=== PATIENT | female | born 1935 | race Caucasian/White ===

== ENCOUNTER 2018-07-26 11:27 | Inpatient (IN) | payer MEDICARE, OTHER ==
[~2018-07-26 11:27] MED LIST: ISOVUE-370 76%-LOCM 1 ML ONE; Iopamidol 370 76% 50 ML VIAL FS ONE
[2018-07-26 13:18] LABS: Hemoglobin 9.5 g/dL (12.0-16.0); Mean Corpuscular HGB CONC 32.2 g/dL (32.0-36.0); Mean Corpuscular Hemoglobin 31.6 pg (27.0-31.0); Mean Corpuscular Volume 97.9 fL (78.0-98.0); Mean Platelet Volume 8.3 fL (7.4-10.4); Platelet Count 238 thou/uL (130-400); RBC Distribution Width 12.9 % (11.5-14.5); Red Blood Cell (RBC) Count 3.02 mill/uL (4.20-5.40); White Blood Cell (WBC) Count 23.2 thou/uL (4.8-10.8)
[2018-07-26 13:24] LABS: INR-International Normal Ratio 1.2; PTT 28.4 SEC (22.9-36.1); Prothrombin Time 15.5 SEC (12.0-14.7)
[2018-07-26 13:33] LABS: Band 1 % (5-11); Lymphocytes 1 % (21-51); MDiff Complete? YES; Monocytes 2 % (0-10); Neutrophil 96 % (42-75); Ovalocytes SLIGHT = 2-5 cells (100X) (0-1/hpf); Platelet Morphology Comment Appears Adequate; Polychromasia SLIGHT = 2-3 cells (100X) (0-2/hpf)
[2018-07-26 13:36] LABS: ALT (SGPT) 34 U/L (8-55); AST (SGOT) 23 U/L (5-34); Albumin 2.9 g/dL (3.4-4.8); Alkaline Phosphatase 85 U/L (40-150); Anion Gap 17 mmol/L (10-20); BUN (Urea Nitrogen) 29 mg/dL (9.8-20.1); Bilirubin, Total 1.2 mg/dL (0.2-1.2); Calc. Creatinine Clearance 0 mL/min (70-130); Calcium 9.1 mg/dL (7.8-10.44); Carbon Dioxide 26 mmol/L (23-31); Chloride 100 mmol/L (98-107); Estimated GFR-MDRD 67; Globulin 2.7 g/dL (2.4-3.5); Glucose 103 mg/dL (83-110); Iron 18 ug/dL (50-170); Iron Binding Capacity, Total 179 mcg/dL (265-497); Lipase 44 U/L (8-78); Magnesium 1.6 mg/dL (1.6-2.6); Potassium 3.9 mmol/L (3.5-5.1); Protein, Total 5.6 g/dL (6.0-8.3); Sodium 139 mmol/L (136-145)
--- NOTE | 2018-07-26 14:07 | RAD ---
CHEST 1 VIEW: HISTORY: Weakness. Blood in stool. COMPARISON: 07/17/2018. FINDINGS: Significant bone demineralization. Markedly displaced comminuted fracture of proximal humeral neck. Status post vertebroplasty changes. Minimal cardiomegaly with bilateral vascular congestion and pro bably some mild interstitial edema changes in the inferior perihilar regions with bilateral pleural e ffusions. IMPRESSION: Vascular congestion with possible mild interstitial edema and bilateral pleural effusions. Significa nt bony demineralization. Nonunited comminuted displaced fracture of the proximal humeral neck but s table from prior study. Significant diffuse bone demineralization. No new confluent pneumonia. POS: [facility]
[2018-07-26 15:00] LABS: Bilirubin Moderate (Negative); Blood, Urine Negative (Negative); Clarity CLOUDY (Clear); Glucose, Urine (Dipstick) Negative (Negative); Leukocyte Small (Negative); Nitrite Negative (Negative); Protein, Urine (Dipstick) Trace mg/dL (Neg-Trace); Specific Gravity, Urine 1.021 (1.002-1.036); pH, Urine 5.5 (5.0-9.0)
[2018-07-26 15:05] LABS: Bacteria/HPF None Seen HPF (None Seen); RBC/HPF 0-3 HPF (0-3)
[2018-07-26 15:11] LABS: Pathc Cast-AUWi Flag 5.81 (0-2.49)
[2018-07-26 15:17] LABS: Hyaline Casts/LPF 4-6 HYALINE CAST LPF (0-3 Hyaline); Other Casts/LPF 0-3 COARSE GRAN LPF (0-3 Hyaline)
[2018-07-26 15:18] LABS: Crystals/HPF 1+ AMORPH URATES HPF (Negative)
[2018-07-26] MEDS ORDERED: Zolpidem Tartrate 5 MG TAB PO PRN (15:27)
--- NOTE | 2018-07-26 16:44 | HP ---
PRIMARY CARE PROVIDER: Dr. Eleazar Marr. Referred to [facility] Service by [facility]. HISTORY OF PRESENT ILLNESS: The patient fell after Thanksgiving, suffered a fracture, dislocated her left humerus. She was placed in the [facility]. She was discharged in the past couple of days. Family and the patient related that she has had diarrhea at least daily for the past several weeks. She has been nauseated and has occasional emesis. She has had no blood in her emesis. She had blood in her stool today described as bright red. She has had no melena. She is anorectic and continues to be nauseated. She denies any abdominal pain, but states she can feel gurgling around. She has had no fever or chills. 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 She has a history of trigeminal neuralgia that acts up on her occasionally. CURRENT MEDICATIONS: 1. Lisinopril 10 mg a day. 2. Metoprolol 25 mg a day. 3. Tramadol 50 mg p.r.n. q.6 hours. 4. Breo Ellipta 125 mcg once a day. ALLERGIES: CODEINE, DEMEROL, AND HYDROCODONE CAUSES ABDOMINAL PAIN, NAUSEA AND VOMITING. PAST SURGICAL HISTORY: Hysterectomy, tonsillectomy in the distant past, and bilateral cataract surgery. She had a kyphoplasty in 2012 for T8-T9 compression fractures. FAMILY HISTORY: Unremarkable for inherited diseases, coronary artery disease, diabetes, etc. SOCIAL HISTORY: The patient smokes 1 to 2 packs a day for 60 years. Drinks very occasional alcohol. Code status is full. Son is next of kin, he is coming. REVIEW OF SYSTEMS: GENERAL: She has dizziness when she takes diuretics. No fainting. EYES: She had diplopia after cataract surgery 4 to 5 years ago, this has significantly resolved. No blurred vision or flashing lights. 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 She has occasional dysphagia. She has no nose bleeds. No pain or drainage in her ears. CARDIAC: No chest pain, orthopnea, or paroxysmal nocturnal dyspnea. RESPIRATIONS: She has occasional wheeze and some dry cough. GASTROINTESTINAL: See present illness. GENITOURINARY: No hematuria or dysuria. MUSCULOSKELETAL: She has had some swelling in her legs occasionally. She states she has a broken back, it is difficult to get exact understanding of what she means by that, but based on our discussion, I believe it represents compression fractures. NEUROLOGICAL: No strokes, seizures, or focal weakness. PSYCHIATRIC: No anxiety or depression. SKIN: She has multiple bruises left from her fall six weeks ago. HEME/LYMPH: No tender or swollen lymph nodes in the axilla, inguinal, or cervical area. EXTREMITIES: It is pertinent her left arm is in a sling. DIAGNOSTIC STUDIES: Chest x-ray, no cardiomegaly, CHF, or infiltrate. She has chronic changes consistent with COPD and scarring. She has a noncomminuted displaced proximal left humeral fracture, reviewed by me. EKG is pending, we will review when available. Comp metabolic profile shows a ferritin of 242. Iron binding capacity and iron are low. BUN is 29, otherwise normal. INR is 1.2. CBC shows a high white count of 23.2, hemoglobin of 9.5, and platelet count of 238,000. ADMITTING DIAGNOSES: Nausea and vomiting, diarrhea, blood in stools, dehydration, hypertension, chronic obstructive pulmonary disease, anemia, and leukocytosis. DISCUSSION: The patient's presentation suggests colitis with possible gastrointestinal bleeding, dehydration secondary to nausea, vomiting, and diarrhea. She will be started on IV fluids replacement doses, Flagyl IV. CT scan with and without contrast of the abdomen will be done. The patient will require re-evaluation after the CT scan is done. Serial CBC and basic metabolic profile will be followed. I have discussed the plan of management with the patient and the family. Job ID: [id number]
[2018-07-26] MEDS: metroNIDAZOLE 500 MG in Premix Bag 1 BAG IVPB SCH ×2 (18:38→23:43)
[2018-07-26] MEDS: D5 1/2 NS w/10 mEq KCl 1,000 ML/1,000 ML BAG IV SCH (20:12)
--- NOTE | 2018-07-26 20:26 | CT ---
CT ABDOMEN AND PELVIS WITH IV CONTRAST: 07/26/18 PROVIDED CLINICAL HISTORY: Colitis. FINDINGS: There are bilateral partially visualized pleural effusions. The liver, spleen, pancreas, kidneys and adrenal glands demonstrate an unremarkable CT appearance. There is extensive atherosclerotic vascular calcification involving the abdominal aorta and its branc hes. This is near occlusive involving the abdominal aorta proximal to and at the level of the renal a rteries. There is severe calcified stenosis of the proximal superior mesenteric artery. The more dist al portions of the SMA do appear opacified. Severe stenosis and calcified in nature involves the romulo ac origin. There is no evidence for bowel obstruction. There is no evidence for free intraperitoneal air or pneu matosis. No significant free fluid is evident. Evaluation for fat stranding is limited given paucity of intraperitoneal fat. There is fluid density throughout much of the distal descending and sigmoid c olon associated with apparent mural thickening. The inferior mesenteric artery is not distinctly iden tified. There is severe calcified stenosis which is occlusive involving the left common iliac artery. The osseous structures demonstrate no concerning lytic or blastic lesions. IMPRESSION: 1. Extensive atherosclerosis with near occlusive calcified plaque involving the abdominal aorta and severe calcified stenoses involving celiac and superior mesenteric origins. The inferior mesenter ic artery is not definitely identified and is presumably occluded. 2. Fluid density within and mural thickening involving the distal descending and sigmoid colon, compatible with colitis. 3. Bilaterally partially visualized pleural effusion. 4. Limited evaluation due to lack of intraperitoneal fat. POS: [facility]
[2018-07-27] MEDS: D5 1/2 NS w/10 mEq KCl 1,000 ML/1,000 ML BAG IV SCH ×2 (03:41→09:10)
[2018-07-27] MEDS: metroNIDAZOLE 500 MG in Premix Bag 1 BAG IVPB SCH ×3 (05:43→17:18)
[2018-07-27 07:49] LABS: #Lymphocytes 1.2 thou/uL (1.20-3.40); #Monocytes 1.2 thou/uL (0.11-0.59); #Neutrophils 17.1 thou/uL (1.40-6.50); %Basophils 0.1 % (0.0-1.0); %Eosinophils 0.1 % (0.0-10.0); %Neutrophils 87.9 % (42.0-75.0); Hemoglobin 8.3 g/dL (12.0-16.0); Mean Corpuscular Hemoglobin 32.2 pg (27.0-31.0); Mean Corpuscular Volume 97.6 fL (78.0-98.0); Mean Platelet Volume 8.8 fL (7.4-10.4); Platelet Count 237 thou/uL (130-400); RBC Distribution Width 12.8 % (11.5-14.5); Red Blood Cell (RBC) Count 2.56 mill/uL (4.20-5.40); White Blood Cell (WBC) Count 19.5 thou/uL (4.8-10.8)
[2018-07-27 08:12] LABS: Anion Gap 8 mmol/L (10-20); BUN (Urea Nitrogen) 23 mg/dL (9.8-20.1); Calc. Creatinine Clearance 41 mL/min (70-130); Calcium 8.1 mg/dL (7.8-10.44); Carbon Dioxide 30 mmol/L (23-31); Chloride 102 mmol/L (98-107); Estimated GFR-MDRD 90; Glucose 111 mg/dL (83-110); Potassium 3.5 mmol/L (3.5-5.1); Sodium 136 mmol/L (136-145)
[2018-07-27] MEDS: Enoxaparin Sodium 40 MG/0.4 ML SYRINGE SC SCH (09:10)
[2018-07-27] MEDS: Lisinopril 10 MG TAB PO SCH (09:10)
[2018-07-27] MEDS: Metoprolol Tartrate 25 MG TAB PO SCH (09:10)
[2018-07-27] MEDS ORDERED: D5 1/2 NS w/10 mEq KCl 1,000 ML/1,000 ML BAG IV SCH (09:33)
--- NOTE | 2018-07-27 10:07 | PRG ---
DATE OF SERVICE: 07/27/2018 SUBJECTIVE: The patient is seen and examined at bedside. She denies any nausea or vomiting. She denies any abdominal pain. She has diarrhea. OBJECTIVE: VITAL SIGNS: Blood pressure is 153/53, pulse is 72, respirations 18, O2 saturation is 93% on 2 L via nasal cannula, temperature is 98.1. HEENT: Her head is atraumatic and normocephalic. Eyes are somewhat shrunked. Sclerae are nonicteric. Conjunctivae are somewhat palish. Oral mucosa is dryish. NECK: Supple. LUNGS: Clear. HEART: S1 and S2 normal. No S3. No S4. ABDOMEN: Soft, nontender, nondistended. EXTREMITIES: No clubbing or cyanosis. There is 1+ peripheral edema around both ankles. NEUROLOGICAL: She is alert and oriented x4. There is no any motor or sensory deficits present. Cranial nerves intact. She looks very emaciated. LABORATORY DATA: Labs showed white count of 19.5, hemoglobin of 8.3, hematocrit 25, platelet count is 237,000. Sodium of 136, potassium 3.5, chloride 102, CO2 30, BUN 23, creatinine 0.63, and glucose 118. MICROBIOLOGY: Campylobacter antigen is negative. Clostridium difficile toxin and antigen negative. Stool lactoferrin final positive. Stool occult blood positive. IMPRESSION: 1. Chronic diarrhea lasting more than a month with weight loss. We will get GI involved. 2. Dehydration improved with IV fluids. 3. Hypertension. 4. Chronic obstructive pulmonary disease. 5. Anemia. 6. Leukocytosis. PLAN: Continuation of metronidazole. Start levofloxacin IV piggyback. Obtain consultation with Gastrointestinal specialist, Dr. Olivera today. Continue her DVT prophylaxis and it looks like she needs to be scoped. Job ID: [id number]
[2018-07-27] MEDS ORDERED: Potassium Chloride 10 MEQ in Dextrose 5 %-0.45 % NaCl 1,000 ML IVPB SCH (12:15)
[2018-07-27] MEDS: Potassium Chloride 10 MEQ in Dextrose 5 %-0.45 % NaCl 1,000 ML IVPB SCH (13:41)
--- NOTE | 2018-07-27 13:51 | EKG ---
Test Reason : Blood Pressure : / mmHG Vent. Rate : 072 BPM Atrial Rate : 072 BPM P-R Int : 136 ms QRS Dur : 080 ms QT Int : 362 ms P-R-T Axes : 089 073 059 degrees QTc Int : 396 ms Sinus rhythm with Premature supraventricular complexes Otherwise normal ECG Confirmed by KATIUSKA MCINTOSH D.O. ([id number]), associate entertainment editor CAMELIA ALLEN ([id number]) on 07/27/2018 1:51:22 PM Referred By: Confirmed By:KATIUSKA MCINTOSH D.O.
[2018-07-27] MEDS ORDERED: GoLYTELY 4,000 ml Bottle PO SCH (18:00)
--- NOTE | 2018-07-27 22:11 | CON ---
DATE OF CONSULTATION: HISTORY OF PRESENT ILLNESS: The patient is an 83-year-old female, who was in her normal state of health until several weeks prior to admission, when she developed diarrhea and some nausea, vomiting. She reports she has lost 12 pounds over the last several months. She did recently notice some blood in her stool and this was new for her. PAST MEDICAL HISTORY: Significant for COPD, trigeminal neuralgia. PAST SURGICAL HISTORY: Includes hysterectomy, tonsillectomy, and cataract surgery. MEDICATIONS: 1. Lisinopril 10 mg p.o. daily. 2. Metoprolol 25 mg p.o. daily. 3. Tramadol 50 mg p.o. q.6 hours p.r.n. 4. . ALLERGIES: CODEINE, DEMEROL, AND HYDROCODONE. SOCIAL HISTORY: She continues to smoke 1 to 2 packs per day for many years. Drinks occasional alcohol. FAMILY HISTORY: Negative for GI or liver disease. REVIEW OF SYSTEMS: CONSTITUTIONAL: No fever or chills. Positive for weight loss. EYES: No blurred vision or double vision. ENT: No sore throat or earaches. CARDIOVASCULAR: No chest pain or palpitations. PULMONARY: No shortness of breath, cough, or wheezing. GI: See above. : No hematuria or dysuria. MUSCULOSKELETAL: Positive for fracture of her left upper extremity. SKIN: No rashes. NEUROLOGIC: No numbness or seizure activity. PHYSICAL EXAMINATION: GENERAL: Shows an elderly, thin, frail white female, in no acute distress. VITAL SIGNS: Temperature 98.1, pulse 63, respiratory rate 15, blood pressure 134/53. HEENT: Unremarkable. NECK: Supple. CHEST: Clear. CARDIOVASCULAR: Regular rate and rhythm. ABDOMEN: Soft, nontender without organomegaly or masses. Bowel sounds are present, normoactive. RECTAL: Deferred. EXTREMITIES: Normal. NEUROLOGIC: Nonfocal. LABORATORY DATA: Laboratory shows a white blood cell count on admission of 23.2, hemoglobin 9.5, hematocrit 29.6. Repeat white blood cell count 19.5, hemoglobin 8.3, hematocrit of 25.0. PT is 15.5 and INR of 1.2. BUN on admission was 29. Iron was 18, TIBC of 179, ferritin 242. Abdominal and pelvic CT showed extensive atherosclerosis with near occlusive calcified plaque involving the abdominal aorta and severe calcified stenosis involving the celiac and SMA. There is also fluid density within mural thickening involving the distal descending and sigmoid colon, compatible with colitis. Bilateral partial visualized pleural effusions are noted. ASSESSMENT: 1. Diarrhea. 2. Nausea, vomiting. 3. Weight loss. 4. Abnormal CT scan of the descending colon-ischemic colitis versus malignancy. 5. Chronic mesenteric vascular disease. 6. Chronic obstructive pulmonary disease. 7. Hematochezia. 8. Anemia-probably gastrointestinal blood loss with anemia of chronic disease. RECOMMENDATIONS: EGD, colonoscopy tomorrow. Job ID: [id number]
[2018-07-28] MEDS: Potassium Chloride 10 MEQ in Dextrose 5 %-0.45 % NaCl 1,000 ML IVPB SCH ×2 (00:23→10:00)
[2018-07-28] MEDS: metroNIDAZOLE 500 MG in Premix Bag 1 BAG IVPB SCH ×3 (00:27→11:52)
[2018-07-28] MEDS: Metoprolol Tartrate 25 MG TAB PO SCH (05:14)
[2018-07-28 06:57] LABS: #Monocytes 1.2 thou/uL (0.11-0.59); #Neutrophils 15.4 thou/uL (1.40-6.50); %Eosinophils 0.3 % (0.0-10.0); %Lymphocytes 5.5 % (21.0-51.0); %Monocytes 6.8 % (0.0-10.0); %Neutrophils 87.4 % (42.0-75.0); Hemoglobin 9.1 g/dL (12.0-16.0); Mean Corpuscular HGB CONC 32.3 g/dL (32.0-36.0); Mean Corpuscular Hemoglobin 32.3 pg (27.0-31.0); Mean Platelet Volume 8.5 fL (7.4-10.4); Platelet Count 257 thou/uL (130-400); RBC Distribution Width 13.1 % (11.5-14.5); Red Blood Cell (RBC) Count 2.83 mill/uL (4.20-5.40); White Blood Cell (WBC) Count 17.6 thou/uL (4.8-10.8)
[2018-07-28 07:15] LABS: Anion Gap 10 mmol/L (10-20); BUN (Urea Nitrogen) 12 mg/dL (9.8-20.1); Calc. Creatinine Clearance 45 mL/min (70-130); Calcium 7.7 mg/dL (7.8-10.44); Carbon Dioxide 26 mmol/L (23-31); Chloride 102 mmol/L (98-107); Estimated GFR-MDRD Greater than 90; Glucose 90 mg/dL (83-110); Potassium 3.5 mmol/L (3.5-5.1); Sodium 134 mmol/L (136-145)
[2018-07-28] MEDS ORDERED: Albuterol Sulfate 1.25 MG/3 ML NEB ONE (08:38)
[2018-07-28] MEDS ORDERED: Albuterol Sulfate HFA (OR ONLY) ONE (08:39)
[2018-07-28] MEDS: Lisinopril 10 MG TAB PO SCH (09:54)
[2018-07-28] MEDS: Enoxaparin Sodium 40 MG/0.4 ML SYRINGE SC SCH (09:54)
[2018-07-28] MEDS ORDERED: Furosemide 40 MG/4 ML VIAL SLOW IVP SCH (13:30)
--- NOTE | 2018-07-28 13:57 | PRG ---
DATE OF SERVICE: 07/28/2018 SUBJECTIVE: The patient is seen and examined at the bedside. There is a family member in the room during my visit. She just came back from the procedure. Dr. Olivera found that she has ischemic colitis on her colonoscopy. OBJECTIVE: VITAL SIGNS: Blood pressure is 166/60, respiratory rate is about 20 to 24, pulse oximeter is 94 on 2 L by nasal cannula. Her pulse is 82. HEENT: Head is atraumatic and normocephalic. She looks emaciated. Her pupils are responding to light properly. Sclerae are nonicteric. Oral mucosa is moist. NECK: Supple. LUNGS: Breath sounds are diminished at both bases. HEART: S1 and S2 are normal. No S3. No S4. ABDOMEN: Soft, nontender. Bowel sounds are present. No organomegaly. EXTREMITIES: No clubbing, cyanosis, or edema. NEUROLOGICAL: She follows my commands. She moves her all four extremities. LABORATORY DATA: Labs showed a white count of 17.6, hemoglobin of 9.1, hematocrit 28.3, and platelet count is 257,000. Sodium of 134, potassium 3.5, chloride 102, CO2 of 26, BUN 12, creatinine 0.57, calcium 7.7. Microbiology, none. IMPRESSION: 1. Nausea, vomiting, diarrhea, and weight loss, status post colonoscopy, which showed ischemic colitis. 2. Chronic mesenteric vascular disease. Cardiothoracic surgeon, Dr. Hogue was consulted. 3. Chronic obstructive pulmonary disease, on DuoNebs. I will continue DuoNebs as her shortness of breath is significantly worse since she came back from the procedure today. I will give her one dose of Lasix. 4. Anemia secondary to gastrointestinal blood loss. PLAN: Plan is to discontinue antibiotics. The case was discussed with Dr. Olivera, who agrees with me. He does not see any need for antibiotic use at this point. This is most likely secondary to ischemic colitis. Her leukocytosis is trending down. We will give her one dose of Lasix 40 mg IV push. We will obtain BNP. I suspect that she had quite a bit of IV fluids during the procedure this morning, and as stated above, Dr. Hogue is consulted for her mesenteric ischemia. Job ID: [id number]
[2018-07-28] MEDS ORDERED: Lidocaine 1% PF 5 ML VIAL ONE (15:35)
[2018-07-28] MEDS ORDERED: PROVENTIL INHALER 6.7 G (200 INHALATIONS) ONE (15:35)
[2018-07-28] MEDS ORDERED: PHENYLEPHRINE-NS 100 MCG/ML 10 ML SYRINGE ONE (15:35)
[2018-07-28] MEDS ORDERED: PROPOFOL 200 MG/20 ML VIAL ONE (15:35)
--- NOTE | 2018-07-28 21:00 | CON ---
DATE OF CONSULTATION: HISTORY OF PRESENT ILLNESS: This is an unfortunate 83-year-old lady who fell and broke her arm about 2 months ago and has been essentially in the hospital rehab since that time. She has had progressive weight loss, severe diarrhea, nausea, and no abdominal pain. She has had some blood in her stool most recently and underwent endoscopy suspicious for ischemic colitis. CT scan was done and I have reviewed this. PAST MEDICAL HISTORY: Significant for hypertension and longstanding tobacco abuse. PAST SURGICAL HISTORY: Includes kyphoplasty T8-T9 from compression fractures, hysterectomy, tonsillectomy, and cataract surgery. SOCIAL HISTORY: She smokes at least a pack and sometimes 2 packs a day for most of her life. She is accompanied by children today. PHYSICAL EXAMINATION: GENERAL: On examination, she is a cachectic appearing female. VITAL SIGNS: Weight stated 85 pounds. NECK: I am unable to auscultate carotid bruits, but due to her cachexia, it is difficulty to even find a spot that is smooth enough to allow the stethoscope to function on her neck. LUNGS: Clear breath sounds bilaterally. CARDIAC: No murmurs. ABDOMEN: Scaphoid and nontender. EXTREMITIES: She has a weak right dorsalis pedis pulse, and I did not appreciate any left pedal pulses. She has no peripheral edema. REVIEW OF SYSTEMS: Otherwise, the patient has noticed progressive weakness, fatigue, and difficulty ambulating due to weakness in her legs. I have reviewed her CT scan, which shows unremarkable amount of atherosclerotic changes in the abdominal aorta and its branch system. The abdominal aorta is nearly completely occluded at above the level of the renal arteries with calcification. The thoracic aorta has circumferential calcification and the distal abdominal aorta is circumferentially calcified as are both iliac systems with near occlusion of the left iliac. The right renal artery is visualized, although its origin cannot be seen. Left renal artery is not visualized. Superior mesenteric artery is nearly or completely occluded with calcium, and the celiac artery is similarly involved. Based on the extensive nature of her disease, I do not think there is any percutaneous intervention. The open intervention to solve this patient's problems would be much too extensive for a cachectic 83-year-old tolerate. Supportive care is all that I can suggest at this time. Job ID: [id number]
[2018-07-29] MEDS: Enoxaparin Sodium 40 MG/0.4 ML SYRINGE SC SCH (07:57)
[2018-07-29] MEDS: Metoprolol Tartrate 25 MG TAB PO SCH (07:57)
[2018-07-29] MEDS: Lisinopril 10 MG TAB PO SCH (07:57)
--- NOTE | 2018-07-29 14:45 | PRG ---
DATE OF SERVICE: 07/29/2018 SUBJECTIVE: The patient is eating somewhat better. She has had no bowel movements. She denies any abdominal pain. The patient was seen by Dr. Hogue, and there was nothing that can be done for her chronic mesenteric vascular disease. OBJECTIVE: VITAL SIGNS: Temperature 98.2, blood pressure 153/53, pulse 92, respiratory rate 18. CHEST: Clear. CARDIOVASCULAR: Regular rate and rhythm. ABDOMEN: Soft, nontender without organomegaly or masses. LABORATORY DATA: Laboratory shows BNP of 792. ASSESSMENT: 1. Ischemic colitis-moderate. 2. Chronic mesenteric vascular disease. RECOMMENDATIONS: 1. Continue to feed. 2. Increase activity. 3. Stable for discharge from GI standpoint when the patient is able to be active and up on her own. Job ID: [id number]
[2018-07-29] MEDS: Ondansetron PF 4 MG/2 ML Vial IVP PRN ×2 (14:51→23:43)
--- NOTE | 2018-07-29 18:08 | PDOC.PN ---
- Subjective Encounter Start Date: 07/29/18 Encounter Start Time: 18:06 Subjective: Seen and examined no new complaint - Objective Resuscitation Status - Order Detail: 07/26/18 15:22 Resuscitation Status Routine Resuscitation Status: FULL: Full Resuscitation Vital Signs & Weight: Vital Signs (12 hours) Temp Pulse Resp BP BP Pulse Ox 07/29/18 16:43 98.3 F 99 18 168/57 H 92 L 07/29/18 12:07 98.2 F 72 18 163/72 H 92 L 07/29/18 11:32 77 12 95 07/29/18 08:00 95 07/29/18 07:57 153/53 H 07/29/18 07:52 97.9 F 76 18 185/65 H 95 07/29/18 06:35 75 14 98 Weight Admit Weight 85 lb 8 oz Weight 85 lb 8 oz I&O: 07/28/18 07/29/18 07/30/18 06:59 06:59 06:59 Intake Total 5700 610 720 Balance 5700 610 720 Result Diagrams: 07/28/18 06:31 07/28/18 06:31 Phys Exam - Physical Examination Constitutional: NAD HEENT: PERRLA, moist MMs, sclera anicteric, TM's clear Neck: no nodes, no JVD, supple, full ROM Respiratory: no wheezing, no rales, no rhonchi Cardiovascular: RRR, no significant murmur, no rub Gastrointestinal: no distention, positive bowel sounds Musculoskeletal: no edema, pulses present Dx/Plan (1) Mesenteric ischemia due to arterial insufficiency Code(s): K55.059 - ACUTE ISCHEMIA OF INTESTINE, PART AND EXTENT UNSPECIFIED Status: Acute (2) Hypertension Code(s): I10 - ESSENTIAL (PRIMARY) HYPERTENSION Status: Acute (3) Advanced age Code(s): R54 - AGE-RELATED PHYSICAL DEBILITY Status: Acute (4) Leukocytosis Code(s): D72.829 - ELEVATED WHITE BLOOD CELL COUNT, UNSPECIFIED Status: Acute (5) Hyponatremia Code(s): E87.1 - HYPO-OSMOLALITY AND HYPONATREMIA Status: Acute - Plan PT/OT, social services technician Prn diuresis -: Dispo planning/commodities manager consult -: Per CTS/Dr Hogue-no intervention possible * .
[2018-07-30] MEDS: Enoxaparin Sodium 40 MG/0.4 ML SYRINGE SC SCH (08:07)
[2018-07-30] MEDS: Metoprolol Tartrate 25 MG TAB PO SCH (08:07)
[2018-07-30] MEDS: Lisinopril 10 MG TAB PO SCH (08:07)
[2018-07-30] MEDS: Ondansetron PF 4 MG/2 ML Vial IVP PRN (09:19)
--- NOTE | 2018-07-30 10:43 | PDOC.PN ---
- Subjective Encounter Start Date: 07/30/18 Encounter Start Time: 10:41 Subjective: Seen and examined not doing too good---not eating - Objective Resuscitation Status - Order Detail: 07/26/18 15:22 Resuscitation Status Routine Resuscitation Status: FULL: Full Resuscitation Vital Signs & Weight: Vital Signs (12 hours) Temp Pulse Resp BP BP Pulse Ox 07/30/18 08:07 153/53 H 07/30/18 08:00 93 L 07/30/18 07:34 98.5 F 93 16 167/48 H 91 L 07/30/18 06:36 95 07/30/18 06:33 57 L 16 95 07/30/18 05:00 98.6 F 95 21 H 171/55 H 91 L Weight Admit Weight 85 lb 8 oz Weight 85 lb 8 oz I&O: 07/29/18 07/30/18 07/31/18 06:59 06:59 06:59 Intake Total 610 1040 240 Balance 610 1040 240 Result Diagrams: 07/28/18 06:31 07/28/18 06:31 Phys Exam - Physical Examination Cachectic Neck: no nodes, no JVD Respiratory: no wheezing, no rales, no rhonchi, clear to auscultation bilateral Cardiovascular: RRR, no significant murmur, no rub Gastrointestinal: soft, non-tender, no distention, positive bowel sounds Musculoskeletal: no edema, pulses present Dx/Plan (1) Mesenteric ischemia due to arterial insufficiency Code(s): K55.059 - ACUTE ISCHEMIA OF INTESTINE, PART AND EXTENT UNSPECIFIED Status: Acute (2) Hypertension Code(s): I10 - ESSENTIAL (PRIMARY) HYPERTENSION Status: Acute (3) Advanced age Code(s): R54 - AGE-RELATED PHYSICAL DEBILITY Status: Acute (4) Leukocytosis Code(s): D72.829 - ELEVATED WHITE BLOOD CELL COUNT, UNSPECIFIED Status: Acute (5) Hyponatremia Code(s): E87.1 - HYPO-OSMOLALITY AND HYPONATREMIA Status: Acute (6) Malnutrition due to starvation Code(s): E46 - UNSPECIFIED PROTEIN-CALORIE MALNUTRITION Status: Acute (7) Malnutrition of moderate degree Code(s): E44.0 - MODERATE PROTEIN-CALORIE MALNUTRITION Status: Acute - Plan plan discussed w/ family, PT/OT, social work assistant Start marinol -: Condition is guarded -: Not a candidate for any surgical intervention * .
--- NOTE | 2018-07-30 11:47 | OP ---
DATE OF PROCEDURE: 07/28/2018 PROCEDURE #1: Esophagogastroduodenoscopy. PREOPERATIVE DIAGNOSES: 1. Nausea and vomiting. 2. Weight loss. 3. Abnormal CT of the colon. 4. Gastrointestinal bleeding. DESCRIPTION OF PROCEDURE: After informed consent was obtained, the patient was placed in the left lateral decubitus position. Anesthesia was administered per the Anesthesia Department. Forward-viewing endoscope was inserted into esophagus under direct visualization with ease and passed to the second portion of the duodenum with ease. The second portion of the duodenum and duodenal bulb were normal. Random biopsies were taken from the second portion of the duodenum. Pylorus, antrum, body, fundus, and cardia were normal except for a large hiatal hernia. There were Zachary's erosions within the waist of the hiatal hernia. No active bleeding was seen. The esophagus was essentially normal with some mild narrowing at the GE junction, but not significant enough to cause symptoms. ASSESSMENT: 1. Large hiatal hernia with Zachary's lesions. 2. Early esophageal stricture - not dilated. 3. Otherwise, normal esophagogastroduodenoscopy. RECOMMENDATIONS: 1. Await histopathology. 2. Start proton pump inhibitor. PROCEDURE #2: Proceed with colonoscopy. DESCRIPTION OF PROCEDURE: After informed consent was obtained, the patient was placed in left lateral decubitus position. Anesthesia was administered per the Anesthesia Department. Forward-viewing colonoscope was inserted in the rectum after perianal inspection rectal exam were normal and passed to the cecum with ease. The cecum, ileocecal valve, and appendiceal orifice were normal. The terminal ileum was not entered. In the right colon, there were occasional punctate erosions. Biopsies were taken from the right colon. In the left colon, particularly the descending sigmoid showed moderate colitis consistent with ischemia. Biopsies were taken. Left-sided diverticula were noted as well as. The rectum was normal. Retroflexion in the rectum was not performed. ASSESSMENT: 1. Descending and sigmoid colitis - status post biopsy; consistent with ischemic colitis. 2. Left-sided diverticulosis coli. 3. Otherwise, normal colonoscopy. RECOMMENDATIONS: 1. Await histopathology. 2. Vascular Surgery opinion. Job ID: [id number] MTDD
--- NOTE | 2018-07-30 11:55 | PRG ---
DATE OF SERVICE: 07/30/2018 SUBJECTIVE: The patient is not eating much at all. She denies any abdominal pain. OBJECTIVE: VITAL SIGNS: Temperature is 98.5, pulse 93, respiratory rate 16, and blood pressure 153/53. CHEST: Clear. CARDIOVASCULAR: Regular rate and rhythm. ABDOMEN: Soft, nontender without organomegaly or masses. LABORATORY DATA: No new labs. ASSESSMENT: 1. Ischemic colitis. 2. Hiatal hernia. 3. Chronic mesenteric ischemia. RECOMMENDATIONS: 1. Agree with Marinol. Other choice would be Megace. 2. Dobbhoff for percutaneous endoscopic gastrostomy if Marinol and/or Megace are unsuccessful. Job ID: [id number]
[2018-07-30] MEDS: Dronabinol 2.5 MG CAP PO SCH (15:47)
[2018-07-31] MEDS: Lisinopril 10 MG TAB PO SCH (09:01)
[2018-07-31] MEDS: Dronabinol 2.5 MG CAP PO SCH ×2 (09:01→16:06)
[2018-07-31] MEDS: Metoprolol Tartrate 25 MG TAB PO SCH (09:02)
[2018-07-31] MEDS: Ondansetron PF 4 MG/2 ML Vial IVP PRN ×2 (09:02→14:52)
[2018-07-31] MEDS: Enoxaparin Sodium 40 MG/0.4 ML SYRINGE SC SCH (09:02)
--- NOTE | 2018-07-31 09:13 | PRG ---
DATE OF SERVICE: 07/31/2018 SUBJECTIVE: The patient is seen and examined at the bedside. Her intake is poor. She gets nauseated from eating just regular food. She did physical therapy yesterday, first session. OBJECTIVE: VITAL SIGNS: Blood pressure is 152/54, pulse is 87, temperature is 98.4, respirations 18, and pulse oximetry is 91% on 3 L by nasal cannula. HEENT: Her pupils are responding to light properly. Sclerae are nonicteric. Oral mucosa is somewhat dry. NECK: Supple. LUNGS: Breath sounds diminished at both bases. No rales or crackles. No wheezing. HEART: S1 and S2 normal. No S3. No S4. ABDOMEN: Soft, nontender, and nondistended. EXTREMITIES: No clubbing, cyanosis, or edema. Left arm is in the sling. NEUROLOGICAL: She follows my commands. She moves her all four extremities. There is no any motor deficit. LABORATORY DATA: None. IMPRESSION: 1. Ischemic colitis. 2. Chronic mesenteric vascular disease. 3. Chronic obstructive pulmonary disease. 4. Anemia. 5. Malnutrition. 6. Hypertension. PLAN: She was started on Marinol yesterday, but she gets nauseated with regular food. I think she needs the PEG. I will contact Dr. Olivera, her solid waste technician on this case, and ask him to put the PEG tube in. She is okay with the tube feeding. She will need PT and [facility] facility. Transfer when she is ready to go and we will continue her DuoNeb and we will continue her Marinol. Job ID: [id number]
[2018-07-31] MEDS: predniSONE 20 MG TAB PO SCH (09:37)
--- NOTE | 2018-07-31 11:36 | RAD ---
PORTABLE AP CHEST RADIOGRAPH: Date: 07-31-18 History: Hypoxia. Comparison: 07-26-18 FINDINGS: Again noted are bilateral pleural and parenchymal lung changes which have increased from the prior st udy, greater on the right. Findings are likely related to moderate right and small left pleural effus ions and associated atelectasis. Superimposed pneumonia cannot be entirely excluded. The cardiac silh ouette is stable in size. Pulmonary vasculature is borderline increased. Vascular calcifications are seen in the thoracic aorta. There is evidence of prior granulomatous disease. Vertebroplasty change i nvolving thoracic vertebral bodies are again present. There is symmetric apical and pleural scarring again noted. The previously noted fracture of the proximal left humerus is almost obscured on this ex am but persists. IMPRESSION: 1. Interval increase in bilateral pleural effusions, much larger in size on the right, with moderate sized right and small left pleural effusions and atelectasis. Superimposed pneumonia cannot be entire ly excluded. 2. Pulmonary vasculature borderline increased. 3. Displaced proximal left humerus fracture is incompletely imaged. 4. Osteopenia. 5. Dense vascular calcifications. POS: [facility]
--- NOTE | 2018-07-31 18:39 | PRG ---
DATE OF SERVICE: 07/31/2018 SUBJECTIVE: The patient is doing better today. She said she ate 40% of her breakfast tray. She ate none of her lunch tray and does not eat dinner tray. She does report some nausea when she does eat. OBJECTIVE: VITAL SIGNS: Temperature 98.3, pulse 79, respiratory rate 18, and blood pressure 152/54. CHEST: Clear. CARDIOVASCULAR: Regular rate and rhythm. ABDOMEN: Soft and nontender without organomegaly or masses. ASSESSMENT: 1. Malnutrition. 2. Mesenteric vascular disease. 3. Large hiatal hernia with Zachary lesions. 4. Early esophageal stricture. 5. Ischemic colitis. RECOMMENDATIONS: EGD and PEG tomorrow. Job ID: [id number]
[2018-08-01] MEDS: Metoprolol Tartrate 25 MG TAB PO SCH (05:51)
[2018-08-01] MEDS ORDERED: CEFAZOLIN 2 GM/50 ML BAG ONE (09:23)
[2018-08-01] MEDS: Dronabinol 2.5 MG CAP PO SCH ×2 (12:13→18:03)
[2018-08-01] MEDS: predniSONE 20 MG TAB PO SCH (12:13)
[2018-08-01] MEDS: Lisinopril 10 MG TAB PO SCH (12:14)
[2018-08-01] MEDS: Enoxaparin Sodium 40 MG/0.4 ML SYRINGE SC SCH (12:15)
--- NOTE | 2018-08-01 12:47 | PQF ---
CLINICAL DOCUMENTATION IMPROVEMENT CLARIFICATION FORM: ICD-10 Updated PLEASE DO AN ADDENDUM TO THE PROGRESS NOTE WITH ANY DOCUMENTATION UPDATES OR ADDITIONS AND CARRY THROUGH TO DC SUMMARY. THANK YOU. DATE: 08/01/2018 ATTN: Dr. Jaquez Please exercise your independent, professional judgment in responding to the clarification form. Clinical indicators are provided on the bottom of this form for your review Please check appropriate box(s): I (concur) with the Wound Care findings as stated below. POA: [ ] Yes [ ] No [ ] Unable to determine [ ] Pressure Ulcer: (Stage I: Erythema; Stage II: Partial thickness; Stage III : Full thickness; Stage IV: Necrosis to muscle/bone) [x ] Location: coccyx Stage (I to IV): (Left____Right____Bilateral___N/A___) [ ] Location: Stage (I to IV): (Left____Right___Bilateral___N/A____) [ ] Other diagnosis [ ] Unable to determine In addition, please specify: Present on Admission (POA): [ ] Yes [ ] No [ ] Unable to determine For continuity of documentation, please document condition throughout progress notes and discharge summary. Thank You. CLINICAL INDICATORS - SIGNS / SYMPTOMS / LABS Nursing Assessment 07/26/2018 @ 1810: Sacrococcygeal Pressure Ulcer Stage III WoundCare Assess. 07/29/2018 @ 0931: Coccyx Pressure Ulcer Stage III RISKS: H&P 07/26: 83 yo with chronic disease pertinent for hypertension, chronic obstructive pulmonary disease from tobacco. PN 07/30: Moderate protein-calorie malnutrition ORDERS: Order 07/28: Consult WoundCare Eval/Treat Stage 3 decub to sacrum WC assess. 07/29: Follow nursing Wound care Protocol Cover with Tegaderm + Pad or other composite Pre-ulcer skin changes limited to persistent focal edema (Stage 1) Abrasion, blister, partial thickness skin loss involving epidermis and/or dermis (Stage 2) Full thickness skin loss involving damage or necrosis of SQ tissue. (Stage 3) Necrosis of soft tissue through to underlying muscle, tendon, or bone. (Stage 4) Purple or maroon discolored skin or blood filled blister Thank you, Nery (This form is maintained as a part of the permanent medical record) 2014 [employer] All Rights Reserved Nery Kim RN, BSN [email or web address] Office: [phone] [facility]OSPITALKeisha
--- NOTE | 2018-08-01 15:15 | PRG ---
DATE OF SERVICE: 08/01/2018 SUBJECTIVE: The patient is seen and examined at the bedside. There is a daughter and son present during my visit. The [facility], and she just came back from the procedure room, where she had PEG tube placed for her feeding. OBJECTIVE: VITAL SIGNS: Blood pressure is 147/55, pulse is 74, respiratory rate is 20, temperature is 97.8, and O2 saturation is 94% on 2 L by nasal cannula. HEENT: Her head is atraumatic and normocephalic. Eyes are PERRLA. Sclerae are nonicteric. Oral mucosa is moist. NECK: Supple. GENERAL: She looks emaciated and malnourished. LUNGS: Clear with some diminished breath sounds at both bases. HEART: S1 and S2 normal. No S3. No S4. ABDOMEN: Soft, nontender. Bowel sounds are present. The tube is in place, covered with a dressing. EXTREMITIES: No clubbing, cyanosis, or edema. She has left upper extremity in the sling. She follows my commands. She moves her all four extremities. LABORATORY DATA: None. IMPRESSION: 1. Ischemic colitis. 2. Chronic mesenteric vascular disease. 3. Chronic obstructive pulmonary disease. 4. Anemia. 5. Malnutrition. 6. Hypertension. 7. Bilateral pleural effusion. PLAN: She just had PEG tube placed, and we will start her feeding as soon as Dr. Olivera recommends. I am going to give her one dose of Lasix. Her BNP was elevated in the past and a chest x-ray showed some pleural effusion. We will obtain BNP and CBC today since it has not been done for some time, and she might need more diuresis at this point. [facility] will be arranged, and she will be transferred as soon as we have available place and she is ready clinically. Job ID: [id number]
[2018-08-01 15:27] LABS: Hemoglobin 9.3 g/dL (12.0-16.0); Mean Corpuscular HGB CONC 31.9 g/dL (32.0-36.0); Mean Corpuscular Hemoglobin 32.7 pg (27.0-31.0); Mean Platelet Volume 8.1 fL (7.4-10.4); Platelet Count 279 thou/uL (130-400); RBC Distribution Width 13.2 % (11.5-14.5); Red Blood Cell (RBC) Count 2.83 mill/uL (4.20-5.40); White Blood Cell (WBC) Count 24.2 thou/uL (4.8-10.8)
[2018-08-01] MEDS ORDERED: Furosemide 40 MG/4 ML VIAL SLOW IVP SCH (15:45)
[2018-08-01 16:01] LABS: Band 11 % (5-11); Lymphocytes 2 % (21-51); MDiff Complete? YES; Macrocytosis SLIGHT = 6-15 cells (100X) (0-5/hpf); Monocytes 1 % (0-10); Neutrophil 86 % (42-75); Platelet Morphology Comment Appears Adequate; Polychromasia SLIGHT = 2-3 cells (100X) (0-2/hpf)
[2018-08-01] MEDS ORDERED: Lidocaine 1% PF 5 ML VIAL ONE (16:21)
[2018-08-01] MEDS ORDERED: PROPOFOL 200 MG/20 ML VIAL ONE (16:21)
--- NOTE | 2018-08-01 16:22 | OP ---
DATE OF PROCEDURE: 08/01/2018 GI ENDOSCOPY NOTE [employer] INTERN SURGEON: None. PROCEDURE PERFORMED: EGD with PEG tube placement. INDICATIONS: 1. Malnutrition. 2. Weight loss. 3. Food aversion. MEDICATIONS: 1. Ancef 2 g IV. 2. See Anesthesia record. FINDINGS: After discussion of the risks, benefits, and alternatives of the procedure, informed consent was obtained and witnessed. Pre-endoscopic cardiopulmonary examination was satisfactory. Time-out was performed before sedation was achieved. Sedation was achieved with Anesthesia assistance in the endoscopy unit. The patient was placed in the supine position. A Pentax adult upper endoscope was placed into the oropharynx and passed through the cricopharyngeus under direct visualization. The esophageal mucosa appeared normal. The Z-line was located at 35 cm from the incisors. The endoscope was advanced into the stomach. Forward and retroflexed views of the entire gastric mucosa were obtained. There was a large hiatal hernia with a few small Zachary erosions. No evidence of large ulcerations or bleeding. The endoscope was advanced through the pylorus and into the first and second portions of the duodenum, which appeared normal. At this point, the endoscope was withdrawn back into the stomach using one-to-one pressure and transillumination methods. A suitable site for PEG placement was located in the left upper quadrant. The site was prepped and draped in a sterile fashion and then anesthetized with subcutaneous lidocaine. A 1 cm vertical incision was made. The introducer needle and catheter were then introduced transcutaneously into the lumen of the stomach. A wire was passed through the catheter and grasped with a snare and then removed per the patient's mouth. The 20-Moroccan traction PEG tube was affixed to the wire and pulled through into position easily in the usual fashion. The endoscope was passed back down the esophagus and into the stomach and good placement of the internal bumper was confirmed. The external bumper was affixed to the tube at a distance of 2 cm. The clamp and external ports were then affixed to the tube and the procedure was completed. The patient tolerated the procedure well. There were no immediate postprocedure complications. IMPRESSION: 1. Large hiatal hernia. 2. Successful placement of 20-Moroccan traction PEG tube to the left upper quadrant, with external bumper at 2 cm. RECOMMENDATIONS: 1. Can use tube for medications now. 2. Can use the tube for feeds in 4 hours. 3. We will plan to come by tomorrow to check the placement of the tube and likely loosen the external bumper a bit. 4. Flush tube regularly. 5. Please call anytime with questions or concerns. Job ID: [id number]
[2018-08-01] MEDS ORDERED: Sodium Bicarbonate Tab 325 MG TAB PER TUBE PRN (17:01)
[2018-08-01] MEDS ORDERED: Pancrelipase DR 12000 1 CAP FS PRN (17:01)
[2018-08-02 07:29] LABS: Magnesium 1.4 mg/dL (1.6-2.6); Phosphorus 2.9 mg/dL (2.3-4.7)
[2018-08-02 08:38] LABS: Anion Gap 17 mmol/L (10-20); BUN (Urea Nitrogen) 36 mg/dL (9.8-20.1); Calc. Creatinine Clearance 36 mL/min (70-130); Calcium 8.2 mg/dL (7.8-10.44); Carbon Dioxide 30 mmol/L (23-31); Chloride 96 mmol/L (98-107); Estimated GFR-MDRD 77; Glucose 99 mg/dL (83-110); Sodium 140 mmol/L (136-145)
[2018-08-02 08:43] LABS: Potassium 2.9 mmol/L (3.5-5.1)
[2018-08-02] MEDS ORDERED: VANCOMYCIN/CEFEPIME IVPB PRN (09:09)
[2018-08-02] MEDS ORDERED: Potassium Chloride 20 MEQ TAB PO SCH ×2 (09:30→17:00)
[2018-08-02] MEDS: predniSONE 20 MG TAB PO SCH (09:46)
[2018-08-02] MEDS: Lisinopril 10 MG TAB PO SCH ×2 (09:46→22:20)
[2018-08-02] MEDS: Metoprolol Tartrate 25 MG TAB PO SCH (09:47)
[2018-08-02] MEDS: Enoxaparin Sodium 40 MG/0.4 ML SYRINGE SC SCH (09:47)
[2018-08-02] MEDS: Cefepime 2 GM in Sodium Chloride 0.9% 100 ML IVPB SCH (09:47)
--- NOTE | 2018-08-02 10:20 | PRG ---
DATE OF SERVICE: 08/02/2018 SUBJECTIVE: The patient is without new complaints. Tube feedings are going without difficulty. She has not been out of bed or walking. OBJECTIVE: VITAL SIGNS: Temperature 98.3, pulse 81, respiratory rate 14, blood pressure 165/51. CHEST: Shows bilateral rhonchi. CARDIOVASCULAR: Regular rate and rhythm. ABDOMEN: Soft, nontender without organomegaly or masses. The PEG site looks good. Bumper is adjusted and loosened. LABORATORY DATA: Shows a potassium 2.9, BUN 36. CBC shows a white blood cell count of 24.2 and hemoglobin 9.3. ASSESSMENT: 1. Status post percutaneous endoscopic gastrostomy. 2. Ischemic colitis. 3. Leukocytosis - I do not think this is GI related. 4. Malnutrition. 5. Inactivity. RECOMMENDATIONS: 1. Physical therapy consult to ambulate patient. 2. Continue tube feedings. Job ID: [id number]
--- NOTE | 2018-08-02 12:25 | PRG ---
DATE OF SERVICE: 08/02/2018 SUBJECTIVE: The patient is seen and examined at the bedside. She is started on a PEG tube feeding, the rate is 20 mL/hour. So far, she is tolerating the feeding without any major issues. She is still on O2. OBJECTIVE: VITAL SIGNS: Blood pressure is 165/51, pulse is 83, temperature is 98.3, maximal temperature is 98.3, her respiratory rate is 20, O2 saturation is 98% on 2 L by nasal cannula. GENERAL: She looks tired and somewhat sick, chronically emaciated. HEENT: Her pupils are responding to light properly. Sclerae are nonicteric. Oral mucosa is somewhat dry. NECK: Supple. No lymphadenopathy. LUNGS: Breath sounds diminished at both bases with few crackles bilaterally. HEART: S1 and S2 normal. No S3. No S4. ABDOMEN: Soft. Somewhat tender on deeper palpation. The PEG tube is in place. EXTREMITIES: No clubbing, cyanosis, or edema. She lost all her subcutaneous tissue from all over her body from lack of nutrition. NEUROLOGIC: She is answering my questions properly. She follows my commands. She moves her all 4 extremities. There are no any motor deficits and cranial nerves seem to be intact. LABORATORY DATA: Labs yesterday; white count was up to 24.2, hemoglobin 9.3, hematocrit 29, and MCV 102, 86% of neutrophils, 11 bands. Chemistry today showed sodium of 140, potassium 2.9, chloride 96, CO2 is 30, BUN 36, creatinine 0.72, magnesium 1.4. BNP yesterday was 1313.2. IMPRESSION: 1. Ischemic colitis. 2. Questionable pneumonia. 3. Chronic obstructive pulmonary disease. 4. Chronic mesenteric vascular disease. 5. Hypokalemia. 6. Hypomagnesemia. 7. Malnutrition. 8. Anemia. 9. Hypertension. 10. Bilateral pleural effusion. DISCUSSION: Yesterday chest x-ray showed bilateral pleural effusion. There is a questionable source of that. We will obtain echocardiogram. She was started on Lasix and we will continue diuresis. We will supplement potassium and magnesium. We will do echocardiogram, and we will continue her PEG tube feeding and increase the rate as tolerated. I am going to start her on vancomycin and cefepime since the case was discussed with Dr. Olivera and he does not think that ischemic colitis is responsible for this high white count of 24,000 from yesterday, and she is quite a complexed case. I am not really sure whether she is going to survive this if the complications started piling up. Job ID: [id number]
[2018-08-02] MEDS: Vancomycin HCl 500 MG in Sodium Chloride 0.9% 100 ML IVPB SCH (12:53)
[2018-08-02] MEDS: Dronabinol 2.5 MG CAP PO SCH ×2 (14:16→15:07)
[2018-08-02] MEDS: Furosemide 40 MG/4 ML VIAL SLOW IVP SCH (15:07)
[2018-08-02] MEDS ORDERED: Magnesium 2 GM/50 ML 2 GM in Premix Bag 1 BAG IVPB SCH (20:30)
[2018-08-02] MEDS ORDERED: Digoxin 0.5 MG/2 ML AMP SLOW IVP SCH (20:45)
[2018-08-02 20:54] LABS: Anion Gap 16 mmol/L (10-20); BUN (Urea Nitrogen) 36 mg/dL (9.8-20.1); Calc. Creatinine Clearance 39 mL/min (70-130); Calcium 8.4 mg/dL (7.8-10.44); Carbon Dioxide 29 mmol/L (23-31); Chloride 103 mmol/L (98-107); Estimated GFR-MDRD 85; Glucose 154 mg/dL (83-110); Magnesium 1.6 mg/dL (1.6-2.6); Potassium 4.2 mmol/L (3.5-5.1); Sodium 144 mmol/L (136-145)
[2018-08-02] MEDS ORDERED: Diltiazem 125 MG in Sodium Chloride 0.9% 100 ML IVPB SCH (22:15)
[2018-08-02 22:26] LABS: pH, Arterial 7.37 (7.35-7.45)
[2018-08-02 22:27] LABS: Actual Bicarbonate (HCO3a) 38.3 mEq/L (22-28); Base Excess (BEa) 10.8 mEq/L (-2.0 to +3.0); CO2 Tension 68.5 mmHg (35.0-45.0); O2 Tension (PaO2) 47.8 mmHg (> 60.0)
[2018-08-02 22:28] LABS: Calcium, Ionized 1.17 mmol/L (1.12-1.30); Carboxyhemoglobin (COHb) 0.3 gm% (0.0-3.0); Hemoglobin (Hb) 10.4 g/dL (12.0-16.0); Potassium - ABG Lab 3.64 mmol/L (3.70-5.30); Puncture Site RRAD
[2018-08-02 22:34] LABS: Band 20 % (5-11); Hemoglobin 10.3 g/dL (12.0-16.0); Lymphocytes 1 % (21-51); MDiff Complete? YES; Mean Corpuscular HGB CONC 30.3 g/dL (32.0-36.0); Mean Corpuscular Hemoglobin 30.6 pg (27.0-31.0); Mean Platelet Volume 8.6 fL (7.4-10.4); Monocytes 1 % (0-10); Neutrophil 78 % (42-75); Platelet Count 250 thou/uL (130-400); Red Blood Cell (RBC) Count 3.37 mill/uL (4.20-5.40); White Blood Cell (WBC) Count 30.3 thou/uL (4.8-10.8)
[2018-08-03] MEDS: Furosemide 40 MG/4 ML VIAL SLOW IVP SCH ×2 (06:11→18:28)
[2018-08-03] MEDS: Metoprolol Tartrate 25 MG TAB PO SCH ×2 (09:24→21:07)
[2018-08-03] MEDS: predniSONE 20 MG TAB PO SCH (09:24)
[2018-08-03] MEDS: Enoxaparin Sodium 40 MG/0.4 ML SYRINGE SC SCH (09:25)
[2018-08-03] MEDS: Dronabinol 2.5 MG CAP PO SCH ×2 (09:25→18:06)
[2018-08-03] MEDS: Lisinopril 10 MG TAB PO SCH ×2 (09:25→21:07)
[2018-08-03] MEDS: Vancomycin HCl 500 MG in Sodium Chloride 0.9% 100 ML IVPB SCH (10:52)
[2018-08-03] MEDS: Cefepime 2 GM in Sodium Chloride 0.9% 100 ML IVPB SCH (11:45)
[2018-08-03 15:17] LABS: Anion Gap 13 mmol/L (10-20); BUN (Urea Nitrogen) 33 mg/dL (9.8-20.1); Calc. Creatinine Clearance 41 mL/min (70-130); Calcium 8.3 mg/dL (7.8-10.44); Carbon Dioxide 37 mmol/L (23-31); Chloride 99 mmol/L (98-107); Estimated GFR-MDRD Greater than 90; Glucose 156 mg/dL (83-110); Potassium 3.2 mmol/L (3.5-5.1); Sodium 146 mmol/L (136-145)
[2018-08-03 15:21] LABS: Troponin I 0.046 ng/mL (< 0.028)
[2018-08-03 15:23] LABS: Phosphorus Less than 1.0 mg/dL (2.3-4.7)
[2018-08-03] MEDS ORDERED: Potassium Phosphate 15 MMOL in Sodium Chloride 0.9% 250 ML 250 ML IVPB SCH (15:30)
[2018-08-03 15:38] LABS: Anisocytosis SLIGHT = 6-15 cells (100X) (0-5/hpf); Band 22 % (5-11); Elliptocytes SLIGHT = 2-5 cells (100X) (0-1/hpf); Hemoglobin 8.2 g/dL (12.0-16.0); Hypochromia SLIGHT = 6-15 cells (100X) (0-5/hpf); Lymphocytes 2 % (21-51); MDiff Complete? YES; Mean Corpuscular HGB CONC 30.7 g/dL (32.0-36.0); Mean Corpuscular Hemoglobin 31.1 pg (27.0-31.0); Mean Platelet Volume 8.7 fL (7.4-10.4); Monocytes 1 % (0-10); Neutrophil 75 % (42-75); Platelet Count 255 thou/uL (130-400); Platelet Morphology Comment Appears Adequate; RBC Distribution Width 13.1 % (11.5-14.5); Red Blood Cell (RBC) Count 2.65 mill/uL (4.20-5.40); White Blood Cell (WBC) Count 19.9 thou/uL (4.8-10.8)
--- NOTE | 2018-08-03 15:49 | PRG ---
DATE OF SERVICE: 08/03/2018 SUBJECTIVE: The patient is tolerating oral intake. She is having no nausea or vomiting. She is having good bowel movements. OBJECTIVE: VITAL SIGNS: Temperature 99.1, pulse 87, respiratory rate 18, and blood pressure 140/67. CHEST: Clear. CARDIOVASCULAR: Regular rate and rhythm. ABDOMEN: Soft, nontender without organomegaly or masses. Bowel sounds are present, normoactive. EXTREMITIES: Normal. LABORATORY DATA: Phosphorus of less than 1.0, potassium 3.2, sodium 136, BUN 33, and glucose 156. ASSESSMENT: 1. Ischemic colitis. 2. Chronic mesenteric ischemia. 3. Status post percutaneous endoscopic gastrostomy. 4. Leukocytosis. 5. Tachycardia. 6. Hypophosphatemia - may be some refeeding syndrome. RECOMMENDATIONS: 1. Continue tube feedings. 2. Correct phosphorus level. 3. Dr. Marrufo is covering, call if needed. Job ID: [id number]
--- NOTE | 2018-08-03 15:58 | PRG ---
DATE OF SERVICE: 08/03/2018 SUBJECTIVE: Patient denies any new complaints. She is asking for food. She is currently on PEG tube feeding only. She denies any pain. Overall, she feels better. Overnight events noted. She had a Code Green yesterday for atrial fibrillation with rapid ventricular response. She is currently on Cardizem drip. OBJECTIVE: VITAL SIGNS: Temperature 99.1, pulse 87, blood pressure of 140/67, O2 saturation 92% on 2 L nasal cannula. GENERAL: An 83-year-old female, cachectic , in no apparent distress. LUNGS: Showed diminished air entry at bases with scattered rhonchi. HEART: S1 and S2 present. Irregularly irregular. No heaves or pulsation. ABDOMEN: Soft. Bowel sounds present. EXTREMITIES: No calf tenderness. CURRENT MEDICATIONS: Current medications were reviewed. The patient is currently on; 1. Cefepime. 2. Cardizem drip. 3. Vancomycin. 4. Marinol. 5. Lovenox for DVT prophylaxis. 6. Nebulizer treatment. 7. Lisinopril. 8. Metoprolol. 9. Prednisone. LABORATORY FINDINGS: Potassium 3.2, phosphorus less than 1, troponin 0.046. Sodium 146. WBC yesterday was 30.3 with 20% bandemia. DIAGNOSTIC STUDIES: Telemetry monitoring by my review showed atrial fibrillation, rate controlled on Cardizem. ADMITTING IMPRESSION: 1. Atrial fibrillation with rapid ventricular response. 2. Ischemic colitis. 3. Sepsis with acute organ dysfunction of unclear etiology. Suspected pneumonia , questionable pneumococcal. 4. Chronic obstructive pulmonary disease. 5. Peripheral vascular disease. 6. Multiple electrolyte abnormalities including hypokalemia, hypomagnesemia, and hypophosphatemia. 7. Severe protein-calorie malnutrition. 8. Chronic anemia. 9. Hypertension. 10. Elevated troponin secondary to demand ischemia. 11. Status post PEG tube placement this admission. 12. Bilateral pleural effusion probably secondary to acute on chronic diastolic heart failure exacerbation. 13. Stage 3 sacral pressure ulcer (present on admission) PLAN: The patient is currently in IMCU. She can probably be transferred to telemetry. Cardiology will be consulted. We will continue Cardizem drip. We will replace electrolytes. We will recheck labs in a.m. Continue current antibiotics. The patient is not a candidate for anticoagulation due to recent GI bleeding. Continue PEG tube feeding. We will continue other home medications. We will reduce Lovenox to 30 mg daily for DVT prophylaxis since her weight is only 85 pounds. We will continue Physical Therapy/Occupational Therapy. Plan of care was discussed with the patient and the family at the bedside. They stated understanding. Job ID: [id number] MTDD
[2018-08-03] MEDS ORDERED: Amiodarone 450 MG in Dextrose 5% in Water 250 ML IVPB SCH (18:45)
[2018-08-03] MEDS ORDERED: Amiodarone 75 MG, Admixture Fee 1 EACH in Dextrose 5% in Water 100 ML IVPB SCH (18:45)
[2018-08-03 19:15] LABS: ALT (SGPT) 14 U/L (8-55); AST (SGOT) 14 U/L (5-34); Albumin 2.4 g/dL (3.4-4.8); Alkaline Phosphatase 81 U/L (40-150); Bilirubin, Direct 0.5 mg/dL (0.1-0.3); Bilirubin, Total 0.9 mg/dL (0.2-1.2)
[2018-08-03] MEDS: K-Phos Neutral 250 MG TAB PER TUBE SCH (21:08)
--- NOTE | 2018-08-03 21:11 | EKG ---
Test Reason : Blood Pressure : / mmHG Vent. Rate : 170 BPM Atrial Rate : 192 BPM P-R Int : 000 ms QRS Dur : 070 ms QT Int : 258 ms P-R-T Axes : 000 060 241 degrees QTc Int : 433 ms Undetermined rhythm Atrial fibrillation Low voltage QRS Abnormal ECG When compared with ECG of 26-JUL-2018 12:08, Significant changes have occurred Confirmed by Kay ROBERTS ([id number]) on 08/03/2018 9:11:17 PM Referred By: PAUL Confirmed By:Kay ROBERTS
[2018-08-04 06:50] LABS: #Lymphocytes 0.6 thou/uL (1.20-3.40); #Monocytes 1.3 thou/uL (0.11-0.59); #Neutrophils 14.2 thou/uL (1.40-6.50); %Monocytes 8.1 % (0.0-10.0); %Neutrophils 87.9 % (42.0-75.0); Hemoglobin 8.4 g/dL (12.0-16.0); Mean Corpuscular Hemoglobin 32.7 pg (27.0-31.0); Mean Platelet Volume 8.8 fL (7.4-10.4); Platelet Count 213 thou/uL (130-400); RBC Distribution Width 13.1 % (11.5-14.5); Red Blood Cell (RBC) Count 2.56 mill/uL (4.20-5.40); White Blood Cell (WBC) Count 16.2 thou/uL (4.8-10.8)
[2018-08-04 07:01] LABS: Anion Gap 14 mmol/L (10-20); BUN (Urea Nitrogen) 33 mg/dL (9.8-20.1); Calc. Creatinine Clearance 46 mL/min (70-130); Calcium 7.7 mg/dL (7.8-10.44); Carbon Dioxide 34 mmol/L (23-31); Chloride 98 mmol/L (98-107); Estimated GFR-MDRD Greater than 90; Glucose 123 mg/dL (83-110); Magnesium 1.6 mg/dL (1.6-2.6); Potassium 3.2 mmol/L (3.5-5.1); Sodium 143 mmol/L (136-145)
[2018-08-04 07:09] LABS: Phosphorus 1.5 mg/dL (2.3-4.7)
[2018-08-04] MEDS: Enoxaparin Sodium 30 MG/0.3 ML SYRINGE SC SCH (09:59)
[2018-08-04] MEDS: Saccharomyces boulardii 250 MG CAP PO SCH (10:00)
[2018-08-04] MEDS ORDERED: Potassium Phosphate 30 MMOL in Sodium Chloride 0.9% 500 ML IVPB SCH (10:00)
[2018-08-04] MEDS: Lisinopril 10 MG TAB PO SCH ×2 (10:00→20:57)
[2018-08-04] MEDS: Furosemide 20 MG TAB PO SCH ×2 (10:00→13:40)
[2018-08-04] MEDS ORDERED: Potassium Chloride 20 MEQ TAB PO SCH (10:00)
[2018-08-04] MEDS: predniSONE 20 MG TAB PO SCH (10:00)
[2018-08-04] MEDS: Metoprolol Tartrate 25 MG TAB PO SCH ×2 (10:00→20:57)
[2018-08-04] MEDS: K-Phos Neutral 250 MG TAB PER TUBE SCH ×3 (10:01→20:57)
--- NOTE | 2018-08-04 10:10 | PRG ---
DATE OF SERVICE: 08/04/2018 SUBJECTIVE: The patient is seen and examined at the bedside. She is significantly better. Her mental condition is back to her baseline. There is a family member in the room during my visit. According to the nurse, there was a 20 mL of residual on her tube feeding. OBJECTIVE: VITAL SIGNS: Blood pressure is 144/69, pulse is 72, temperature 98.6, maximal temperature is 99.4, pulse oximetry is 97% on 2 L by nasal cannula. GENERAL: She is able to talk to me and communicate like before I saw her two days ago and she went into atrial fibrillation and was moved to [facility] for IV Cardizem treatment. HEENT: Her head is atraumatic and normocephalic. She looks emaciated as before. Her eyes are PERRLA. Sclerae nonicteric. Oral mucosa is moist. NECK: Supple. LUNGS: Breath sounds diminished at both bases. HEART: S1 and S2, irregularly irregular. No S3. No S4. ABDOMEN: Soft and nontender. PEG tube is in place. Bowel sounds are present.. EXTREMITIES: No clubbing, cyanosis, or edema. NEUROLOGIC: She follows my commands. She moves her all four extremities. There is no any motor or sensory deficits. Cranial nerves are intact. LABORATORY DATA: Labs showed white count of 16.2, hemoglobin 8.4, hematocrit 26.1, and platelet count 213. Chemistry showed sodium of 143, potassium 3.2, chloride 98, CO2 of 34, creatinine 8.56, BUN 33, phosphorus 1.5, magnesium 1.6, calcium 7.7, glucose 123. IMPRESSION: 1. Ischemic colitis. 2. Possible pneumonia and sepsis. 3. Chronic obstructive pulmonary disease. 4. Chronic mesenteric vascular disease. 5. Hypokalemia, hypomagnesemia, hypophosphatemia. 6. Malnutrition. 7. Hypertension. 8. Atrial fibrillation with rapid ventricular response. 9. Congestive heart failure with bilateral pleural effusions. DISCUSSION: The patient is on diltiazem drip. Her rate is controlled. We are going to continue her diuresis with furosemide p.o. for her bilateral pleural effusions and congestive heart failure. Also, we will continue SOTO inhibitor. She is going to be on vancomycin and cefepime to be continued. We will replace her potassium and phosphorus. We will continue PT. We will continue prednisone 20 mg and will continue DuoNebs. Job ID: [id number]
[2018-08-04 10:46] LABS: Vancomycin, Trough 5.5 ug/mL
[2018-08-04] MEDS: Vancomycin HCl 500 MG in Sodium Chloride 0.9% 100 ML IVPB SCH (11:10)
[2018-08-04] MEDS: Cefepime 2 GM in Sodium Chloride 0.9% 100 ML IVPB SCH (11:19)
[2018-08-04] MEDS: Dronabinol 2.5 MG CAP PO SCH ×2 (11:20→17:12)
[2018-08-04] MEDS: Vancomycin HCl 750 MG in Sodium Chloride 0.9% 250 ML 250 ML IVPB SCH (12:23)
[2018-08-04] MEDS: Amiodarone 200 MG TAB PO SCH ×2 (15:25→20:57)
[2018-08-04] MEDS: Acetaminophen 325 MG TAB PO PRN (20:57)
[2018-08-05] MEDS: cloNIDine 0.1 MG TAB PO PRN ×2 (02:16→16:31)
[2018-08-05] MEDS: Dronabinol 2.5 MG CAP PO SCH ×2 (09:09→16:42)
[2018-08-05] MEDS: Enoxaparin Sodium 30 MG/0.3 ML SYRINGE SC SCH (09:10)
[2018-08-05] MEDS: Amiodarone 200 MG TAB PO SCH ×3 (09:10→20:39)
[2018-08-05] MEDS: predniSONE 20 MG TAB PO SCH (09:10)
[2018-08-05] MEDS: Furosemide 20 MG TAB PO SCH ×2 (09:10→15:13)
[2018-08-05] MEDS: Metoprolol Tartrate 25 MG TAB PO SCH ×2 (09:11→20:40)
[2018-08-05] MEDS: K-Phos Neutral 250 MG TAB PER TUBE SCH ×3 (09:11→20:39)
[2018-08-05] MEDS: Lisinopril 10 MG TAB PO SCH ×2 (09:11→20:40)
[2018-08-05] MEDS: Saccharomyces boulardii 250 MG CAP PO SCH (09:12)
[2018-08-05 09:54] LABS: #Lymphocytes 0.6 thou/uL (1.20-3.40); #Neutrophils 9.7 thou/uL (1.40-6.50); %Basophils 0.1 % (0.0-1.0); %Eosinophils 0.2 % (0.0-10.0); %Lymphocytes 5.6 % (21.0-51.0); %Monocytes 8.9 % (0.0-10.0); %Neutrophils 85.3 % (42.0-75.0); Hemoglobin 8.9 g/dL (12.0-16.0); Mean Corpuscular Hemoglobin 32.7 pg (27.0-31.0); Mean Platelet Volume 8.8 fL (7.4-10.4); Platelet Count 217 thou/uL (130-400); RBC Distribution Width 13.3 % (11.5-14.5); Red Blood Cell (RBC) Count 2.71 mill/uL (4.20-5.40); White Blood Cell (WBC) Count 11.4 thou/uL (4.8-10.8)
[2018-08-05 10:23] LABS: Anion Gap 18 mmol/L (10-20); Carbon Dioxide 35 mmol/L (23-31); Chloride 96 mmol/L (98-107); Sodium 146 mmol/L (136-145)
[2018-08-05 10:25] LABS: BUN (Urea Nitrogen) 29 mg/dL (9.8-20.1); Calc. Creatinine Clearance 47 mL/min (70-130); Calcium 7.6 mg/dL (7.8-10.44); Estimated GFR-MDRD Greater than 90; Glucose 118 mg/dL (83-110); Magnesium 1.2 mg/dL (1.6-2.6); Phosphorus 3.1 mg/dL (2.3-4.7); Potassium 2.9 mmol/L (3.5-5.1)
[2018-08-05] MEDS: Cefepime 2 GM in Sodium Chloride 0.9% 100 ML IVPB SCH (10:52)
[2018-08-05] MEDS ORDERED: Magnesium 2 GM/50 ML 2 GM in Premix Bag 1 BAG IVPB SCH (11:00)
[2018-08-05] MEDS ORDERED: Potassium Chloride 20 MEQ TAB PO SCH ×2 (11:00→15:00)
[2018-08-05] MEDS: Vancomycin HCl 750 MG in Sodium Chloride 0.9% 250 ML 250 ML IVPB SCH (11:50)
--- NOTE | 2018-08-05 13:57 | PRG ---
DATE OF SERVICE: 08/05/2018 SUBJECTIVE: The patient is seen and examined at bedside. She was not able to sleep last night and she is quite drowsy this morning, trying to catch up on her sleep. Her daughter is present in the room during my visit and I do my rounds with the nurse. OBJECTIVE: VITAL SIGNS: Blood pressure is , pulse is 58, temperature is 99.2, respiratory rate is 20, O2 saturation is 97% on 2.5 L by nasal cannula. She has mild residuals, only 15 mL on 55 mL/h. HEENT: Her head is atraumatic and normocephalic. GENERAL: The examination is somewhat limited today because she is quite drowsy and I do not really want to wake her up all the way. LUNGS: Breath sounds diminished at both bases. HEART: S1, S2, regular. No S3. No S4. ABDOMEN: Soft, mildly tender all over in diffuse fashion. EXTREMITIES: No clubbing, cyanosis. There is edema on lower extremities and upper extremities. Her left arm is in a swing secondary to fracture. IMPRESSION: 1. Ischemic colitis. 2. Possible pneumonia with sepsis. 3. Chronic obstructive pulmonary disease. 4. Chronic mesenteric vascular disease. 5. Hypokalemia, hypomagnesemia, hypophosphatemia, recurrent. 6. Malnutrition. 7. Hypertension. 8. Atrial fibrillation with rapid ventricular response, now in sinus. 9. Congestive heart failure with bilateral pleural effusion. DISCUSSION: The patient was started on broad-spectrum antibiotics for possible sepsis pneumonia. There was no any blood cultures done, which would help us to understand the severity of the problem. We will continue both antibiotics for now. We will continue amiodarone for her atrial fibrillation and this is managed by Cardiology. We will continue probiotics. We will continue tube feeding. She seems to be tolerating 55 mL/h. We will continue PT and OT. We will continue Lasix 20 twice a day. We will do the chest x-ray tomorrow morning. Job ID: [id number]
[2018-08-06] MEDS: cloNIDine 0.1 MG TAB PO PRN (04:15)
[2018-08-06] MEDS ORDERED: Lisinopril 10 MG TAB PO SCH (08:18)
[2018-08-06 08:40] LABS: BUN (Urea Nitrogen) 25 mg/dL (9.8-20.1); Calc. Creatinine Clearance 46 mL/min (70-130); Calcium 7.6 mg/dL (7.8-10.44); Estimated GFR-MDRD Greater than 90; Glucose 143 mg/dL (83-110); Magnesium 1.6 mg/dL (1.6-2.6)
[2018-08-06 08:50] LABS: Anion Gap 21 mmol/L (10-20); Carbon Dioxide 35 mmol/L (23-31); Chloride 95 mmol/L (98-107); Sodium 148 mmol/L (136-145)
[2018-08-06 08:54] LABS: Potassium 2.6 mmol/L (3.5-5.1)
--- NOTE | 2018-08-06 09:09 | RAD ---
PORTABLE CHEST 1 VIEW: DATE: 08/06/2018. TIME: 5:31 a.m. HISTORY: Pneumonia. FINDINGS: Comparison is made with the exam on 07/31/2018. The heart size is normal. The aorta is tortuous. There are bilateral pleural effusions, greater lar tho than left, with adjacent consolidation/atelectatic changes. No pneumothoraces are seen. There a re postop changes of vertebroplasty in the spine. POS: [facility]
[2018-08-06] MEDS: Dronabinol 2.5 MG CAP PO SCH ×2 (09:33→16:27)
[2018-08-06] MEDS: predniSONE 20 MG TAB PO SCH (09:34)
[2018-08-06] MEDS: Furosemide 20 MG TAB PO SCH ×2 (09:34→14:14)
[2018-08-06] MEDS: Enoxaparin Sodium 30 MG/0.3 ML SYRINGE SC SCH (09:34)
[2018-08-06] MEDS: Amiodarone 200 MG TAB PO SCH ×3 (09:34→20:33)
[2018-08-06] MEDS: Saccharomyces boulardii 250 MG CAP PO SCH (09:35)
[2018-08-06] MEDS: K-Phos Neutral 250 MG TAB PER TUBE SCH ×3 (09:35→20:33)
[2018-08-06] MEDS: Lisinopril 20 MG TAB PO SCH ×2 (09:35→20:33)
[2018-08-06] MEDS: Potassium Chloride 20 MEQ TAB PO SCH ×4 (09:36→20:33)
[2018-08-06] MEDS: Metoprolol Tartrate 25 MG TAB PO SCH (09:37)
[2018-08-06] MEDS: Cefepime 2 GM in Sodium Chloride 0.9% 100 ML IVPB SCH (10:47)
[2018-08-06] MEDS: NIFEdipine XL 30 MG TAB PO SCH (11:24)
[2018-08-06] MEDS: Vancomycin HCl 750 MG in Sodium Chloride 0.9% 250 ML 250 ML IVPB SCH (11:24)
[2018-08-06 12:03] LABS: Vancomycin, Trough 8.7 ug/mL
--- NOTE | 2018-08-06 12:31 | PRG ---
DATE OF SERVICE: 08/06/2018 SUBJECTIVE: The patient is seen and examined at the bedside. She seems to be doing somewhat better. She looks better. She has some residuals on her tube feeding, but usually they are less than 200. She complains about some shortness of breath in the middle of the night and not being able to get any specific treatment for her lungs. OBJECTIVE: VITAL SIGNS: Blood pressure is 186/56, pulse is 74, respiratory rate is 20, and O2 saturation is 91% on 4 L by nasal cannula. HEENT: Her head is atraumatic and normocephalic. Pupils are responding to light properly. Sclerae are nonicteric. Conjunctivae palish. Oral mucosa is somewhat dry. NECK: Supple. LUNGS: Breath sounds slightly diminished at both bases. No wheezing. No rales. HEART: S1 and S2, regular. No S3. No S4. ABDOMEN: Soft. The PEG tube is in place. Bowel sounds are present, although they are sluggish. EXTREMITIES: No clubbing, cyanosis, or edema. NEUROLOGICAL: She follows my commands. She is awake and alert, and she answers my questions quite properly. LABORATORY DATA: Sodium of 148, potassium 2.6, chloride 95, CO2 is 35, BUN 25, creatinine 0.56, glucose 143, calcium 7.6, and magnesium 1.6. IMPRESSION: 1. Ischemic colitis. 2. Possible pneumonia with sepsis. 3. Chronic obstructive pulmonary disease. We are going to change her DuoNeb to every 4 hours, so she can get one treatment in the middle of the night when she gets short of breath. 4. Chronic mesenteric vascular disease, status post cardiothoracic consultation without any specific treatment available at this point. 5. Hypokalemia, severe, recurrent along with hypomagnesemia and hypophosphatemia, most likely secondary to severe depletion and malnutrition. 6. Hypertension. Her regimen will be adjusted, and atrial fibrillation with rapid ventricular response, now in sinus rhythm. 7. Congestive heart failure with bilateral pleural effusion. 8. Status post PEG tube placement for malnutrition. DISCUSSION: We are going to continue her tube feeding at 55 mL/h. We are going to continue her potassium replacement. She will get 40 mEq of KCl q.4 hours x4 today. I have to increase her dose since she sounds like she is very depleted of potassium. We are going to simplify her regimen with antibiotics from vancomycin just to cefepime, and we will continue her Lasix small dose 20 mg twice a day and amiodarone 200 mg three times a day. She will continue her PT and OT and she will need snf to recover from all this severe illness. Job ID: [id number]
[2018-08-07 07:25] LABS: #Lymphocytes 0.5 thou/uL (1.20-3.40); #Monocytes 1.1 thou/uL (0.11-0.59); #Neutrophils 14.8 thou/uL (1.40-6.50); %Eosinophils 0.3 % (0.0-10.0); %Monocytes 6.5 % (0.0-10.0); %Neutrophils 90.2 % (42.0-75.0); Hemoglobin 9.9 g/dL (12.0-16.0); Mean Corpuscular HGB CONC 31.4 g/dL (32.0-36.0); Mean Corpuscular Hemoglobin 32.1 pg (27.0-31.0); Platelet Count 240 thou/uL (130-400); RBC Distribution Width 13.1 % (11.5-14.5); Red Blood Cell (RBC) Count 3.09 mill/uL (4.20-5.40); White Blood Cell (WBC) Count 16.4 thou/uL (4.8-10.8)
[2018-08-07 07:41] LABS: BUN (Urea Nitrogen) 21 mg/dL (9.8-20.1); Calc. Creatinine Clearance 49 mL/min (70-130); Calcium 8.1 mg/dL (7.8-10.44); Estimated GFR-MDRD Greater than 90; Glucose 122 mg/dL (83-110)
[2018-08-07 07:50] LABS: Anion Gap 17 mmol/L (10-20); Carbon Dioxide 38 mmol/L (23-31); Chloride 96 mmol/L (98-107); Potassium 3.5 mmol/L (3.5-5.1); Sodium 147 mmol/L (136-145)
[2018-08-07 09:44] LABS: Actual Bicarbonate (HCO3a) 48.4 mEq/L (22-28); Base Excess (BEa) 23.3 mEq/L (-2.0 to +3.0); CO2 Tension 56.6 mmHg (35.0-45.0); Calcium, Ionized 0.99 mmol/L (1.12-1.30); Carboxyhemoglobin (COHb) 1.3 gm% (0.0-3.0); Potassium - ABG Lab 3.14 mmol/L (3.70-5.30)
[2018-08-07] MEDS: K-Phos Neutral 250 MG TAB PER TUBE SCH ×3 (09:44→21:07)
[2018-08-07] MEDS: Lisinopril 20 MG TAB PO SCH ×2 (09:44→21:07)
[2018-08-07] MEDS: Saccharomyces boulardii 250 MG CAP PO SCH (09:44)
[2018-08-07] MEDS: Furosemide 20 MG TAB PO SCH ×2 (09:44→12:27)
[2018-08-07] MEDS: Amiodarone 200 MG TAB PO SCH ×3 (09:46→21:07)
[2018-08-07] MEDS: Enoxaparin Sodium 30 MG/0.3 ML SYRINGE SC SCH (09:47)
[2018-08-07] MEDS: Dronabinol 2.5 MG CAP PO SCH ×2 (09:47→16:52)
[2018-08-07] MEDS: Acetaminophen 325 MG TAB PO PRN (09:47)
[2018-08-07] MEDS: predniSONE 20 MG TAB PO SCH (09:47)
[2018-08-07 09:55] LABS: pH, Arterial 7.55 (7.35-7.45)
[2018-08-07 09:59] LABS: O2 Tension (PaO2) 53.3 mmHg (> 60.0); Puncture Site RRA
[2018-08-07 10:00] LABS: Troponin I 0.062 ng/mL (< 0.028)
--- NOTE | 2018-08-07 12:19 | PQF ---
CLINICAL DOCUMENTATION IMPROVEMENT CLARIFICATION FORM: ICD-10 Updated PLEASE DO AN ADDENDUM TO THE PROGRESS NOTE WITH ANY DOCUMENTATION UPDATES OR ADDITIONS AND CARRY THROUGH TO DC SUMMARY. THANK YOU. DATE: 08/07/18; 08/08/18 ATTN: Dr. Toure Please exercise your independent, professional judgment in responding to the clarification form. Clinical indicators are provided on the bottom of this form for your review Diagnosis: Possible pneumonia with sepsis [ ] Ruled in diagnosis [ ] Continue to treat [ ] Resolved [ X ] Ruled out diagnosis [ ] Cannot rule out diagnosis [ ] Other diagnosis [ ] Unable to determine Present on Admission (POA): [ ] Yes [ ] No [ ] Unable to determine Coding guidelines require hospitals to identify whether a diagnosis was present on admission (POA) or not. To accurately assign the appropriate POA indicator, this information must be clearly documented within the medical record. CLINICAL INDICATORS - SIGNS / SYMPTOMS / LABS H&P 07/26: Diagnostic studies: Chest x-ray, no cardiomegaly, CHF, or infiltrate. She has chronic changes consistent with COPD scarring. CBC shows a high white count of 23.2 07/26 Chest XR 1 view: Impression: Vascular congestion with possible mild interstitial edema and bilateral pleural effusions. No new confluent pneumonia. 07/31 Chest XR 1 view: Impression: Interval increase in bilateral pleural effusions, much larger in size on the right, with moderate sized right and small left pleural effusions and atelectasis. Superimposed pneumonia cannot be entirely excluded. PN 08/02: Questionable pneumonia. PN 08/05 -2018: Possible pneumonia with sepsis. RISKS: H&P: 83 yo. Discharged in past couple of days. Chronic disease pertinent for hypertension, COPD from tobacco. Pt's presentation suggests colitis with possible GI bleeding , dehydration secondary to nausea, vomiting and diarrhea. TREATMENT: Order 07/26-07/28: IV Flagyl 500 mg Q 6 hr Order 07/27-07/28: Levaquin IV for abdominal infection - other Order 08/02: IV Maxipime 2gm Order 08/02-08/04: IV Vancomycin for Pneumonia Order 08/04- 08/06: IV Vancomycin for Pneumonia Thank you, Nery (This form is maintained as a part of the permanent medical record) 2015 [employer]. All Rights Reserved Nery Kim RN, BSN [email or web address] Office: [phone] [facility]
[2018-08-07] MEDS: Cefepime 2 GM in Sodium Chloride 0.9% 100 ML IVPB SCH (12:28)
[2018-08-07] MEDS: NIFEdipine XL 30 MG TAB PO SCH (12:28)
[2018-08-07 14:21] LABS: BUN (Urea Nitrogen) 23 mg/dL (9.8-20.1); Calc. Creatinine Clearance 51 mL/min (70-130); Calcium 7.6 mg/dL (7.8-10.44); Estimated GFR-MDRD Greater than 90; Glucose 137 mg/dL (83-110); Magnesium 1.4 mg/dL (1.6-2.6)
[2018-08-07 14:29] LABS: Phosphorus 1.8 mg/dL (2.3-4.7)
[2018-08-07 14:30] LABS: Anion Gap 14 mmol/L (10-20); Carbon Dioxide 38 mmol/L (23-31); Chloride 98 mmol/L (98-107); Potassium 3.2 mmol/L (3.5-5.1); Sodium 147 mmol/L (136-145)
--- NOTE | 2018-08-07 15:26 | PDOC.PN ---
- Subjective Encounter Start Date: 08/07/18 Encounter Start Time: 15:24 Pt seen for followup re:ischemic colitis. Feels weak. - Objective Resuscitation Status - Order Detail: 08/07/18 14:28 Resuscitation Status Routine Resuscitation Status: DNAR: NO Resuscitation Discussed with: patient MAR Reviewed: Yes Vital Signs & Weight: Vital Signs (12 hours) Temp Pulse Resp BP Pulse Ox 08/07/18 15:21 99.2 F 94 32 H 184/63 H 94 L 08/07/18 12:28 84 08/07/18 11:39 84 26 H 94 L 08/07/18 11:15 98.6 F 84 24 H 160/60 H 94 L 08/07/18 08:00 94 L 08/07/18 07:56 96 08/07/18 07:55 72 23 H 96 08/07/18 07:23 98.4 F 72 24 H 169/77 H 97 08/07/18 04:00 98.7 F 75 19 169/64 H 97 Weight Admit Weight 85 lb 8 oz Weight 85 lb 8 oz I&O: 08/06/18 08/07/18 08/08/18 06:59 06:59 06:59 Intake Total 3270 2845 80 Balance 3270 2845 80 Result Diagrams: 08/07/18 07:01 08/07/18 13:51 EKG Reviewed by me: Yes (Tele: turner mehta) Phys Exam - Physical Examination Constitutional: NAD HEENT: moist MMs Neck: supple Respiratory: clear to auscultation bilateral Cardiovascular: irregular Gastrointestinal: soft PEG tube Neurological: moves all 4 limbs Deviation from normal: appears anxious Dx/Plan (1) Ischemic colitis Code(s): K55.9 - VASCULAR DISORDER OF INTESTINE, UNSPECIFIED Status: Acute Comment: no intervention, per CV surgery (2) Hypertension Code(s): I10 - ESSENTIAL (PRIMARY) HYPERTENSION Status: Acute Comment: add PRN IV hydralazine (3) Malnutrition of moderate degree Code(s): E44.0 - MODERATE PROTEIN-CALORIE MALNUTRITION Status: Chronic Comment: s/p PEG tube - Plan * . Discussed code status with patient. She wants to be DNAR, also wants to pursue hospice care. Review of Systems - Review of Systems Constitutional: weakness Respiratory: SOB with Excertion. negative: Cough, Shortness of Breath, Pleuritic Pain, Wheezing Cardiovascular: negative: chest pain, palpitations, orthopnea, paroxysmal nocturnal dyspnea, edema, light headedness - Medications/Allergies Allergies/Adverse Reactions: Allergies Allergy/AdvReac Type Severity Reaction Status Date / Time chlorpheniramine Allergy Verified 07/26/18 16:54 [facility] codeine Allergy Verified 07/26/18 16:53 hydrocodone Allergy Verified 07/26/18 16:53 meperidine Allergy Verified 07/26/18 16:53 Medications: Current Medications Acetaminophen (Tylenol) 650 mg PO Q4H PRN PRN Reason: Headache/Fever/Mild Pain (1-3) Last Admin: 08/07/18 09:47 Dose: 650 mg Albuterol/Ipratropium (Duoneb) 3 ml NEB [id number] [facility] Last Admin: 08/07/18 11:39 Dose: 3 ml Amiodarone HCl (Cordarone) 200 mg PO TID [facility] Last Admin: 08/07/18 15:00 Dose: 200 mg Lipase/Protease/[place] ([place] [id number]) 1 cap FS .PER PROTOCOL PRN PRN Reason: TUBE OCCLUSION PROTOCOL Clonidine (Catapres) 0.1 mg PO Q4H PRN PRN Reason: SBP>160 AND DBP>100 Last Admin: 08/06/18 04:15 Dose: 0.1 mg Dronabinol (Marinol) 2.5 mg PO BID-AC [facility] Last Admin: 08/07/18 09:47 Dose: 2.5 mg Enoxaparin Sodium (Lovenox) 30 mg SC 0900 [facility] Last Admin: 08/07/18 09:47 Dose: 30 mg Furosemide (Lasix) 20 mg PO 0900,1400 [facility] Last Admin: 08/07/18 12:27 Dose: 20 mg Cefepime HCl 2 gm/ Sodium (Chloride) 100 mls @ 200 mls/hr IVPB 1100 [facility] Last Admin: 08/07/18 12:28 Dose: 100 mls Amiodarone HCl 450 mg/ (Dextrose/Water) 259 mls @ 0.28 mls/hr IVPB INF [facility] Last Admin: 08/03/18 20:50 Dose: 259 mls Magnesium Sulfate 4 gm/ Sodium (Chloride) 258 mls @ 86 mls/hr IVPB 1600 [facility] Stop: 08/07/18 19:00 Potassium Phosphate 30 mmol/ (Sodium Chloride) 510 mls @ 83.3 mls/hr IVPB 1600 [facility] Stop: 08/07/18 22:00 Calcium Gluconate 4.6 meq/ (Sodium Chloride) 110 mls @ 200 mls/hr IVPB Q4H [facility] Stop: 08/07/18 20:02 Lisinopril (Zestril) 20 mg PO BID [facility] Last Admin: 08/07/18 09:44 Dose: 20 mg Miscellaneous Medication (Pharmacy To Dose) 1 each IVPB PRN PRN PRN Reason: FOR PNA Nifedipine (Procardia Xl) 30 mg PO 1200 [facility] Last Admin: 08/07/18 12:28 Dose: 30 mg Ondansetron HCl (Zofran) 4 mg IVP Q6H PRN PRN Reason: Nausea/Vomiting Last Admin: 07/31/18 14:52 Dose: 4 mg Phosphorus (Kphos Neutral) 500 mg PER TUBE TID [facility] Last Admin: 08/07/18 15:00 Dose: 500 mg Potassium Chloride (Klor-Con) 40 meq PO Q4H [facility] Stop: 08/07/18 19:31 Prednisone (Prednisone) 20 mg PO QAM-WM [facility] Last Admin: 08/07/18 09:47 Dose: 20 mg Saccharomyces Boulardii (Florastor) 250 mg PO DAILY [facility] Last Admin: 08/07/18 09:44 Dose: 250 mg Sodium Chloride (Flush - Normal Saline) 10 ml IVF Q12HR [facility] Last Admin: 08/07/18 09:48 Dose: 10 ml Sodium Chloride (Flush - Normal Saline) 10 ml IVF PRN PRN PRN Reason: Saline Flush Last Admin: 08/03/18 06:11 Dose: 10 ml Zolpidem Tartrate (Ambien) 5 mg PO HSPRN PRN PRN Reason: Insomnia
[2018-08-07] MEDS ORDERED: Magnesium Sulfate 4 GM in Sodium Chloride 0.9% 250 ML 250 ML IVPB SCH (16:00)
[2018-08-07] MEDS ORDERED: Potassium Phosphate 30 MMOL in Sodium Chloride 0.9% 500 ML IVPB SCH (16:00)
[2018-08-07] MEDS: Calcium Gluconate 4.6 MEQ in Sodium Chloride 0.9% 100 ML IVPB SCH ×2 (16:52→18:20)
--- NOTE | 2018-08-07 22:47 | CON ---
DATE OF CONSULTATION: 08/07/2018 SERVICE: Pulmonary Medicine. REASON FOR CONSULTATION: ICU patient. HISTORY OF PRESENT ILLNESS: The patient is an 83-year-old white female with past medical history significant for severe protein-calorie malnutrition and advancing age. She was in her usual state of health when she started having significant falls. The patient has had severe diarrhea for several weeks. Either way, she was tucked into the hospital with a diagnosis of colitis and a possible GI bleed. She was also having severe nausea, vomiting, and not being able to tolerate p.o. She was put on some broad-spectrum antibiotics. Her nutrition was deplorable. Her weight was falling off, and she became increasingly dehydrated. GI consultation was placed. Ultimately, PEG tube was placed, so the enteral nutrition could be re- established. Two days after, enteral nutrition was started. She ended up having increasing encephalopathy, confusion, and tachypnea. She developed atrial fibrillation with RVR on the floor and was subsequently transitioned off the floor to the IMCU. She cannot provide any additional elements of the history. She currently has encephalopathy. She moves upper and lower extremities spontaneously. She withdraws from discomfort and has pupils that are working. That being said, the only thing that she will answer is yes and not yes. She is not following any commands at this point. PAST MEDICAL HISTORY: 1. Hypertension. 2. COPD. 3. Chronic hypercapnic respiratory failure. 4. History of extensive tobacco abuse. 5. Trigeminal neuralgia. 6. Severe protein-calorie malnutrition. 7. Ischemic colitis. PAST SURGICAL HISTORY: 1. PEG tube placement. 2. Hysterectomy. 3. Tonsillectomy, remote. 4. Cataract surgery, bilateral. 5. Kyphoplasty. FAMILY HISTORY: Noncontributory. ALLERGIES: 1. CODEINE. 2. DEMEROL. 3. HYDROCODONE. MEDICATIONS: List of her inpatient medications was reviewed. No specific updates were made at this time. REVIEW OF SYSTEMS: Cannot be obtained as the patient has encephalopathy. PHYSICAL EXAMINATION: VITAL SIGNS: Afebrile with a T-max of 99.2, pulse 94, blood pressure 184/63, respirations 32, saturation 94% on room air. GENERAL: The patient is awake and alert. She is absolutely in no apparent distress. She has some accessory muscle use in a barrel chest. She does not appear to be in any significant respiratory distress. HEART: Normal rate. Regular. ABDOMEN: Soft, nontender, and nondistended. Bowel sounds are positive. MUSCULOSKELETAL: No cyanosis or clubbing. There is no pitting in the bilateral lower extremities. SKIN: Tenting is present throughout. LABORATORY DATA: Sodium 147, bicarb 38, potassium 3.2, creatinine 0.5, magnesium and phosphorus are quite low. Calcium is low with a low ionized calcium as well. Troponin 0.062. TSH 0.09. IMAGING STUDIES: Chest x-ray demonstrates no acute cardiopulmonary abnormality. 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 Small pleural effusions are present bilaterally. Ultrasound of bilateral lower extremities demonstrates no evidence of DVT in the left leg. ASSESSMENT: 1. Metabolic encephalopathy. 2. Severe protein-calorie malnutrition. 3. Refeeding syndrome, suspected. 4. Chronic obstructive pulmonary disease without current exacerbation. 5. Ischemic colitis with intestinal angina and food aversion. 6. Suppressed TSH. DISCUSSION AND PLAN: I will replace her potassium, magnesium, phosphorus, and calcium. She is currently rate controlled. I will recheck her TSH, and a free T4 tomorrow morning. If this is significantly elevated, treatment for hyperthyroidism should be considered. I will increase her free water. Pulmonary/Critical Care will continue to follow. She will need to remain in this location for the time being. 70 minutes have been devoted to this patient in various activities. I personally reviewed all imaging studies and laboratory data noted within this document. For fifty percent of this time, I was interacting with the patient at the bedside or coordinating care with the care team. For the remainder of the time I was immediately available to the patient in the hospital unit. Job ID: [id number] [facility]
[2018-08-08 05:22] LABS: Free T4 (Free Thyroxine) 0.8 ng/dL (0.70-1.48); Thyroid Stimulating Hormone 0.2872 uIU/mL (0.35-4.94)
[2018-08-08 09:17] LABS: Chloride 101 mmol/L (98-107); Potassium 3.6 mmol/L (3.5-5.1); Sodium 147 mmol/L (136-145)
[2018-08-08 09:20] LABS: Anion Gap 16 mmol/L (10-20); Carbon Dioxide 34 mmol/L (23-31)
[2018-08-08 09:21] LABS: BUN (Urea Nitrogen) 22 mg/dL (9.8-20.1); Calc. Creatinine Clearance 50 mL/min (70-130); Calcium 7.9 mg/dL (7.8-10.44); Estimated GFR-MDRD Greater than 90; Glucose 114 mg/dL (83-110); Phosphorus 3.6 mg/dL (2.3-4.7)
[2018-08-08] MEDS: Lisinopril 20 MG TAB PO SCH ×2 (09:29→21:21)
[2018-08-08] MEDS: Furosemide 20 MG TAB PO SCH ×2 (09:30→14:08)
[2018-08-08] MEDS: Enoxaparin Sodium 30 MG/0.3 ML SYRINGE SC SCH (09:30)
[2018-08-08] MEDS: Saccharomyces boulardii 250 MG CAP PO SCH (09:30)
[2018-08-08] MEDS: Amiodarone 200 MG TAB PO SCH ×3 (09:30→21:21)
[2018-08-08] MEDS: predniSONE 20 MG TAB PO SCH (09:30)
[2018-08-08] MEDS: K-Phos Neutral 250 MG TAB PER TUBE SCH ×3 (09:30→21:21)
[2018-08-08] MEDS: Dronabinol 2.5 MG CAP PO SCH ×2 (09:31→17:51)
[2018-08-08] MEDS: cloNIDine 0.1 MG TAB PO PRN (11:21)
[2018-08-08] MEDS: Cefepime 2 GM in Sodium Chloride 0.9% 100 ML IVPB SCH (11:21)
--- NOTE | 2018-08-08 11:31 | PRG ---
DATE OF SERVICE: 08/08/2018 SERVICE: Pulmonary Medicine. INTERVAL HISTORY: The patient is doing fine from respiratory standpoint. She is breathing comfortably. Today, I find her much more awake and alert. She is responding to her environment. She is answering questions appropriately with yes and no, and she is following directions. Otherwise, there has been no interval change to her condition. PHYSICAL EXAMINATION: VITAL SIGNS: Afebrile, pulse 83, blood pressure 184/84, respirations 20, saturation 97% on 3 L nasal cannula. GENERAL: The patient is awake and alert, in no apparent distress. LUNGS: Excellent air entry. No rhonchi or wheezing appreciated. HEART: Normal rate and regular. ABDOMEN: Soft, nontender, and nondistended. Bowel sounds are positive. MUSCULOSKELETAL: No cyanosis or clubbing. There is no pitting in the bilateral lower extremities. NEUROLOGIC: Grossly nonfocal. LABORATORY DATA: Sodium 147, potassium 3.6, magnesium 3.0, phosphorus 3.6. Basic metabolic profile is otherwise unremarkable. TSH 0.28 and improved. Free T4 falls within the normal limits. Bicarb has improved to 34. C. diff antigen and toxin are negative. Stool lactoferrin is elevated. ASSESSMENT: 1. Metabolic encephalopathy, improving. 2. Severe protein-calorie malnutrition. 3. Refeeding syndrome, possible. 4. Chronic obstructive pulmonary disease without current exacerbation. 5. Ischemic colitis with intestinal angina and food aversion. 6. Hypomagnesemia, hypokalemia, hypocalcemia, hypophosphatemia, resolved. DISCUSSION AND PLAN: I will replace the patient's potassium. Her contraction alkalosis is improving. We will continue our free water through time. From my perspective, she is stable for transition out of the ICU to the telemetry unit. We will follow her electrolytes on a daily basis for the time being. Job ID: [id number]
--- NOTE | 2018-08-08 15:42 | PDOC.PN ---
- Subjective Encounter Start Date: 08/08/18 Encounter Start Time: 09:20 Pt seen for followup re: ischemic colitis. More alert today. Denies any complaints. - Objective Resuscitation Status - Order Detail: 08/07/18 14:28 Resuscitation Status Routine Resuscitation Status: DNAR: NO Resuscitation Discussed with: patient MAR Reviewed: Yes Vital Signs & Weight: Vital Signs (12 hours) Temp Pulse Resp BP BP BP Pulse Ox 08/08/18 13:57 97 18 97 08/08/18 11:21 171/96 H 08/08/18 11:10 99.9 F H 95 18 180/135 H 93 L 08/08/18 10:18 83 20 96 08/08/18 09:29 171/96 H 08/08/18 08:00 97 08/08/18 07:56 82 18 98 08/08/18 07:19 98.8 F 82 20 184/84 H 97 08/08/18 04:00 99.3 F 80 16 179/63 H 94 L Weight Admit Weight 85 lb 8 oz Weight 87 lb I&O: 08/07/18 08/08/18 08/09/18 06:59 06:59 06:59 Intake Total 2845 1000 50 Balance 2845 1000 50 Result Diagrams: 08/07/18 07:01 08/08/18 04:13 EKG Reviewed by me: Yes (Tele; NSR) Phys Exam - Physical Examination Malnourished HEENT: moist MMs Neck: supple Respiratory: clear to auscultation bilateral Cardiovascular: RRR Gastrointestinal: soft LUE in sling Neurological: moves all 4 limbs Psychiatric: normal affect Dx/Plan (1) Ischemic colitis Code(s): K55.9 - VASCULAR DISORDER OF INTESTINE, UNSPECIFIED Status: Acute Comment: medical management (2) Hypertension Code(s): I10 - ESSENTIAL (PRIMARY) HYPERTENSION Status: Acute Comment: add PRN IV hydralazine (3) Malnutrition of moderate degree Code(s): E44.0 - MODERATE PROTEIN-CALORIE MALNUTRITION Status: Chronic Comment: s/p PEG tube - Plan * . Review of Systems - Review of Systems Cardiovascular: negative: chest pain, palpitations, orthopnea, paroxysmal nocturnal dyspnea, edema, light headedness Gastrointestinal: negative: Nausea, Vomiting, Abdominal Pain, Diarrhea, Constipation, Melena, Hematochezia - Medications/Allergies Allergies/Adverse Reactions: Allergies Allergy/AdvReac Type Severity Reaction Status Date / Time chlorpheniramine Allergy Verified 07/26/18 16:54 [From [facility]] codeine Allergy Verified 07/26/18 16:53 hydrocodone Allergy Verified 07/26/18 16:53 meperidine Allergy Verified 07/26/18 16:53 Medications: Current Medications Acetaminophen (Tylenol) 650 mg PO Q4H PRN PRN Reason: Headache/Fever/Mild Pain (1-3) Last Admin: 08/07/18 09:47 Dose: 650 mg Albuterol/Ipratropium (Duoneb) 3 ml NEB [id number] [facility] Last Admin: 08/08/18 13:57 Dose: 3 ml Amiodarone HCl (Cordarone) 200 mg PO TID [facility] Last Admin: 08/08/18 14:08 Dose: 200 mg Lipase/Protease/Amylase ([place] [id number]) 1 cap FS .PER PROTOCOL PRN PRN Reason: TUBE OCCLUSION PROTOCOL Clonidine (Catapres) 0.1 mg PO Q4H PRN PRN Reason: SBP>160 AND DBP>100 Last Admin: 08/08/18 11:21 Dose: 0.1 mg Dronabinol (Marinol) 2.5 mg PO BID-AC [facility] Last Admin: 08/08/18 09:31 Dose: Not Given Enoxaparin Sodium (Lovenox) 30 mg SC 0900 [facility] Last Admin: 08/08/18 09:30 Dose: 30 mg Furosemide (Lasix) 20 mg PO 0900,1400 [facility] Last Admin: 08/08/18 14:08 Dose: 20 mg Cefepime HCl 2 gm/ Sodium (Chloride) 100 mls @ 200 mls/hr IVPB 1100 [facility] Last Admin: 08/08/18 11:21 Dose: 100 mls Amiodarone HCl 450 mg/ (Dextrose/Water) 259 mls @ 0.28 mls/hr IVPB INF [facility] Last Admin: 08/03/18 20:50 Dose: 259 mls Lisinopril (Zestril) 20 mg PO BID [facility] Last Admin: 08/08/18 09:29 Dose: 20 mg Miscellaneous Medication (Pharmacy To Dose) 1 each IVPB PRN PRN PRN Reason: FOR PNA Nifedipine (Procardia Xl) 60 mg PO 1200 [facility] Ondansetron HCl (Zofran) 4 mg IVP Q6H PRN PRN Reason: Nausea/Vomiting Last Admin: 07/31/18 14:52 Dose: 4 mg Phosphorus (Kphos Neutral) 500 mg PER TUBE TID [facility] Last Admin: 08/08/18 14:08 Dose: 500 mg Potassium Chloride (Klor-Con) 40 meq PO NOW [facility] Stop: 08/08/18 16:00 Last Admin: 08/08/18 11:21 Dose: 40 meq Potassium Chloride (Klor-Con) 20 meq PO [facility]AM-[facility] Prednisone (Prednisone) 20 mg PO QAM-WM [facility] Last Admin: 08/08/18 09:30 Dose: 20 mg Saccharomyces Boulardii (Florastor) 250 mg PO DAILY [facility] Last Admin: 08/08/18 09:30 Dose: 250 mg Sodium Chloride (Flush - Normal Saline) 10 ml IVF Q12HR [facility] Last Admin: 08/08/18 09:30 Dose: 10 ml Sodium Chloride (Flush - Normal Saline) 10 ml IVF PRN PRN PRN Reason: Saline Flush Last Admin: 08/03/18 06:11 Dose: 10 ml Zolpidem Tartrate (Ambien) 5 mg PO HSPRN PRN PRN Reason: Insomnia
[2018-08-08] MEDS: Acetaminophen 325 MG TAB PO PRN (21:21)
[2018-08-08] MEDS: Lorazepam 2 MG/ML VIAL SLOW IVP PRN (23:00)
[2018-08-09 06:05] LABS: Phosphorus 4.2 mg/dL (2.3-4.7)
[2018-08-09 06:13] LABS: Anion Gap 14 mmol/L (10-20); BUN (Urea Nitrogen) 30 mg/dL (9.8-20.1); Calc. Creatinine Clearance 44 mL/min (70-130); Calcium 8.4 mg/dL (7.8-10.44); Carbon Dioxide 36 mmol/L (23-31); Chloride 100 mmol/L (98-107); Estimated GFR-MDRD Greater than 90; Glucose 118 mg/dL (83-110); Magnesium 2.1 mg/dL (1.6-2.6); Potassium 4.2 mmol/L (3.5-5.1); Sodium 146 mmol/L (136-145)
[2018-08-09 06:43] LABS: Band 25 % (5-11); Hemoglobin 9.7 g/dL (12.0-16.0); Lymphocytes 2 % (21-51); MDiff Complete? YES; Mean Corpuscular HGB CONC 30.5 g/dL (32.0-36.0); Mean Platelet Volume 9.6 fL (7.4-10.4); Monocytes 1 % (0-10); Neutrophil 72 % (42-75); Platelet Count 265 thou/uL (130-400); RBC Distribution Width 13.2 % (11.5-14.5); Red Blood Cell (RBC) Count 3.12 mill/uL (4.20-5.40); White Blood Cell (WBC) Count 30.4 thou/uL (4.8-10.8)
[2018-08-09] MEDS: K-Phos Neutral 250 MG TAB PER TUBE SCH ×2 (07:55→14:09)
[2018-08-09] MEDS: Saccharomyces boulardii 250 MG CAP PO SCH (07:56)
[2018-08-09] MEDS: Lisinopril 20 MG TAB PO SCH (07:56)
[2018-08-09] MEDS: predniSONE 20 MG TAB PO SCH (07:56)
[2018-08-09] MEDS: Enoxaparin Sodium 30 MG/0.3 ML SYRINGE SC SCH (07:56)
[2018-08-09] MEDS: Lorazepam 2 MG/ML VIAL SLOW IVP PRN (07:57)
[2018-08-09] MEDS: Furosemide 20 MG TAB PO SCH (07:57)
[2018-08-09] MEDS: Dronabinol 2.5 MG CAP PO SCH (07:57)
[2018-08-09] MEDS: Amiodarone 200 MG TAB PO SCH ×2 (07:57→14:09)
[2018-08-09 08:25] VITALS: BMI 15.9
[2018-08-09 08:55] VITALS: TEMP 98.5
[2018-08-09] MEDS ORDERED: NIFEdipine XL 60 MG TAB PO SCH (12:00)
--- NOTE | 2018-08-09 12:18 | PRG ---
DATE OF SERVICE: 08/09/2018 SERVICE: Pulmonary Medicine. INTERVAL HISTORY: The patient is doing okay from respiratory standpoint. Hemodynamically, she is also doing fairly well. From mentation standpoint, she is still a little bit off. She remains extraordinarily weak. Physical Therapy is working with her today. PHYSICAL EXAMINATION: VITAL SIGNS: Afebrile, pulse 77, blood pressure 150/57, respirations 16, and saturation 96% on 2 L nasal cannula. GENERAL: The patient is somnolent. She is not currently following commands. HEENT: Normocephalic and atraumatic. Sclerae are white. Conjunctivae are pink. Oral mucosa is moist without lesions. LUNGS: Excellent air entry. There is expiratory wheezing present. No rhonchi or crackles are appreciated. HEART: Normal rate, regular. ABDOMEN: Scaphoid. Soft. Nontender and nondistended. Bowel sounds are positive. MUSCULOSKELETAL: No cyanosis or clubbing. There is skin tenting throughout, which is improving. GENITOURINARY: No Talamantes catheter in place. NEUROLOGIC: Grossly nonfocal. LABORATORY DATA: WBC 30.4, hemoglobin 9.7, and platelets 265,000. Neutrophil count is 72% on top 25% bands. Sodium is downtrending to 146. Basic metabolic profile is otherwise unremarkable. Bicarb 36. C. diff antigen and toxin are unremarkable. ASSESSMENT: 1. Metabolic encephalopathy. 2. Severe protein-calorie malnutrition. 3. Refeeding syndrome, stabilizing. 4. Chronic obstructive pulmonary disease without current exacerbation. 5. Ischemic colitis with intestinal angina and food aversion. DISCUSSION AND PLAN: We will continue to watch the patient in the IMCU. I will check a thiamine and folate levels. We will get a peripheral smear looking into her macrocytic anemia. I will initiate nebulized medications, which will be scheduled q.6 hours. Pulmonary/Critical Care will continue to follow along. Job ID: [id number] [facility]
[2018-08-09] MEDS: Cefepime 2 GM in Sodium Chloride 0.9% 100 ML IVPB SCH (12:22)
[2018-08-09 12:23] VITALS: BP 131/56
--- NOTE | 2018-08-09 17:32 | DIS ---
DATE OF ADMISSION: 07/26/2018 DATE OF DISCHARGE: 08/09/2018 PRIMARY CARE PROVIDER: Dr. Eleazar Marr. DISCHARGE DIAGNOSES: 1. Ischemic colitis. 2. Severe protein-calorie malnutrition. 3. Intestinal angina and food aversion. 4. Acute metabolic encephalopathy. 5. Refeeding syndrome. CONDITION OF PATIENT ON THE DAY OF DISCHARGE: I assessed Ms. Tyler on the day of discharge. She is sleepy, but arousable, denies any complaints. Vital signs are stable. S1 and S2 are heard, regular. Lungs are clear to auscultation bilaterally. CONSULTATIONS DURING THIS HOSPITALIZATION: Gastroenterology, Dr. Frederic Olivera; Cardiovascular Surgery, Dr. Shadi Hogue; Pulmonary Critical Care Medicine, Dr. Lm Castrejon. HOSPITAL COURSE: Ms. Tyler is a pleasant 83-year-old lady, who was admitted to [facility] on July 26, 2018, for colitis. She was seen by Gastroenterology Service. She underwent colonoscopy on July 28, which showed descending and sigmoid colitis, status post biopsy consistent with ischemic colitis, left-sided diverticulosis coli, and otherwise normal colonoscopy. She also had EGD that day which showed large hiatal hernia with Zachary lesions. She had early esophageal stricture, which was not dilated. 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 She was seen by Cardiovascular Surgery Service. There was no percutaneous intervention. They recommended supportive care. The patient was also seen by Cardiology Service for atrial fibrillation with rapid ventricular response. She was treated with amiodarone and Cardizem drip. Her oral intake remained poor, presumably secondary to food aversion from intestinal angina. On August 01, she underwent EGD with PEG tube placement. She was started on tube feeds. However, she continued to decline. She was having significant diarrhea, presumably secondary to malabsorption of PEG tube feeds. Clostridium difficile test was negative. After discussion with family, initially they made her DNAR. Subsequently, after discussion with palliative care team, family opted hospice care. The patient has been accepted as inpatient at [facility]. She is being discharged there at this time. DISCHARGE MEDICATIONS: These are likely to change at the hospice facility, but currently include, 1. Amiodarone 200 mg 3 times a day. 2. DuoNebs p.r.n. 3. Lisinopril 20 mg 2 times a day. 4. Procardia XL 60 mg daily. 5. Prednisone 20 mg daily. 6. Florastor 250 mg daily. Many thanks for allowing me to participate in your patient's care. Please feel free to contact me with any questions or concerns. DISCHARGE DESTINATION: [facility]. TIME SPENT: Total amount of time spent coordinating this discharge: 33 minutes. Job ID: [id number]
== END 2018-08-09 16:24 | disposition hospice, inpatient (51) | DRG 393 ==
LOC: ERS 11:27 → ERHOLD 14:50 → T4-A 17:00 → IMCU/EMU 08-02 19:58
PROVIDERS: ADMIT Internal Medicine; ATTEND Internal Medicine
PROC: 0DB98ZX Excision of Duodenum, Via Natural or Artificial Opening Endoscopic, Diagnostic (ICD-10-PCS; 2018-07-28)
PROC: 0DBG8ZX Excision of Left Large Intestine, Via Natural or Artificial Opening Endoscopic, Diagnostic (ICD-10-PCS; 2018-07-28)
PROC: 0DBF8ZX Excision of Right Large Intestine, Via Natural or Artificial Opening Endoscopic, Diagnostic (ICD-10-PCS; 2018-07-28)
PROC: 0DJ08ZZ Inspection of Upper Intestinal Tract, Via Natural or Artificial Opening Endoscopic (ICD-10-PCS; principal; 2018-08-01)
PROC: 0DH63UZ Insertion of Feeding Device into Stomach, Percutaneous Approach (ICD-10-PCS; 2018-08-01)
PROC: 3E0G76Z Introduction of Nutritional Substance into Upper GI, Via Natural or Artificial Opening (ICD-10-PCS; 2018-08-01)
DX: K55.9 Vascular disorder of intestine, unspecified (principal); L89.153 Pressure ulcer of sacral region, stage 3; G93.41 Metabolic encephalopathy; E43 Unspecified severe protein-calorie malnutrition; K55.059 Acute (reversible) ischemia of intestine, part and extent unspecified; E87.1 Hypo-osmolality and hyponatremia; Z68.1 Body mass index [BMI] 19.9 or less, adult; J96.12 Chronic respiratory failure with hypercapnia; J90 Pleural effusion, not elsewhere classified; Z51.5 Encounter for palliative care; I10 Essential (primary) hypertension; J44.9 Chronic obstructive pulmonary disease, unspecified; F17.210 Nicotine dependence, cigarettes, uncomplicated; G50.0 Trigeminal neuralgia; E86.0 Dehydration; K44.9 Diaphragmatic hernia without obstruction or gangrene; K22.2 Esophageal obstruction; K57.30 Diverticulosis of large intestine without perforation or abscess without bleeding; R54 Age-related physical debility; D72.829 Elevated white blood cell count, unspecified; D63.8 Anemia in other chronic diseases classified elsewhere; K55.1 Chronic vascular disorders of intestine; Z66 Do not resuscitate; E87.6 Hypokalemia; E83.42 Hypomagnesemia; E83.39 Other disorders of phosphorus metabolism; E83.51 Hypocalcemia; Z88.5 Allergy status to narcotic agent
CPT/HCPCS: 36415; 71045; 74177; 80048; 80076; 80202; 81003; 81015; 82274; 82728; 82805; 83540; 83550; 83630; 83690; 83735; 83880; 84100; 84439; 84443; 84484; 85025; 85610; 85730; 86403; 86850; 86900; 86901; 87324; 87449; 88305; 90471; 90662; 93005; 93010; 93306; 94640; A4353; G0008; J0282; J0692; J1160; J1650; J1940; J1956; J2001; J2060; J2405; J2704; J3370; J3475; J3480; J7042; J7050; J7070; J7506; J7620; Q0167